=== PATIENT | male | born 1950 | race Caucasian/White ===

== ENCOUNTER 2025-03-17 13:15 | Inpatient (IN) ==
--- NOTE | 2025-03-17 13:34 | Emergency Department Note ---
Impression & Plan Dehydration, Cholecystitis, Diverticulitis, Acute renal failure superimposed on stage 3 chronic kidney disease, Elevated troponin, Nausea vomiting and diarrhea ED Provider Note CHIEF COMPLAINT: Shortness of breath, vomiting, diarrhea HISTORY OF PRESENTING ILLNESS: This 74-year-old male patient presents to the emergency department with his significant other for evaluation of nausea, vomiting, and diarrhea for the past 4 days. He has not been able to keep any fluids down. Also having shortness of breath, but feels like his lungs are OK just that he feels weak that is causing SOB. He feels like his heart is working harder to keep up because he feels so dehydrated. He has some pain in his stomach prior to the vomiting and diarrhea, but no pain otherwise. He states that he is on Plavix. Denies hematochezia, melena, hematuria, hemoptysis, or hematemesis. He denies chest pain or SOB. He denies measured fevers, but feels warm. REVIEW OF SYSTEMS: See HPI for pertinent positives and pertinent negatives. ALLERGIES: NKDA MEDICATIONS: See below PAST MEDICAL HISTORY: See below PHYSICAL EXAM: VITALS: Vitals are noted on the nurse's note and reviewed by myself. GENERAL: Non toxic, in no acute distress, non-diaphoretic. SKIN: Capillary refill <2 sec. EYES: PERRLA. EOMI. Conjunctivae without injection, sclerae without icterus. NOSE: Patent without discharge. MOUTH: Mucous membranes moist. Uvula midline. Airway patent. NECK: Supple without nuchal rigidity. HEART: Regular rate and rhythm without murmurs gallops or rubs. LUNGS: Clear to auscultation bilaterally without wheezes, rales or rhonchi. No retractions or accessory muscle use. ABDOMEN: Positive bowel sounds x 4. Normal tympanic percussion. Soft, mild diffuse tenderness to palpation more so on the left side of the abdomen. No masses or hepatosplenomegaly. No focal right upper quadrant tenderness. Broussard sign negative. No CVA tenderness. No guarding, rigidity, or rebound tenderness. No focal RLQ or LLQ tenderness. MUSCULOSKELETAL: No gross musculoskeletal defects. No significant peripheral edema or pitting edema. Bilateral lower extremities are nontender to palpation. Peripheral pulses 2+. NEURO: Patient was alert and oriented. No focal neurological deficits. DIFFERENTIAL DIAGNOSIS: Differential diagnosis includes CHF, COPD exacerbation, pneumonia, pneumothorax, hemothorax, [place], hepatitis, pancreatitis, cholecystitis, cholelithiasis, appendicitis, kidney stone, pyelonephritis, UTI, gastritis, gastroenteritis, mesenteric adenitis, obstruction, constipation, hernia, abdominal abscess, perforation, diverticulitis, IBD, ischemic colitis, abdominal aortic aneurysm, testicular torsion, prostatitis, or others. ED COURSE AND MEDICAL DECISION MAKING: HISTORY FROM INDEPENDENT HISTORIAN: Additional history obtained from the patient's MEDICATIONS GIVEN: A total of 1500 mL normal saline solution bolus. Tylenol 1000 mg IV. Zofran 4 mg IV. Zosyn 4.5 g IV. MONITOR: Continuous cardiac catheterization technician: Order was placed for continuous cardiac catheterization technician. Patient was placed on the cardiac catheterization technician and continuous pulse ox. Patient was noted to be in normal sinus rhythm at an initial rate of 80 bpm per my interpretation. EKG: EKG was interpreted by myself as normal sinus rhythm at 79 bpm with no acute ST or T wave changes. Repeat EKG was interpreted by myself as normal sinus rhythm at 72 bpm with no acute ST or T wave changes and no significant change from his previous EKG. INTERPRETATION OF LABS: I interpreted the labs with full lab results as below in the lab section of this note. Laboratory results pertinent to the emergent complaint are discussed in the MDM section below. The patient was advised to follow up with their PCP and/or specialist(s) for further outpatient monitoring and management of any abnormal results. INTERPRETATION OF IMAGING: Imaging studies were interpreted by myself and read by radiology as per the imaging section of this note. The patient was advised to follow up with their PCP and/or specialist(s) for further outpatient management of any non-emergent abnormal findings. Chest x-ray negative for acute cardiopulmonary etiology. CT scan of the abdomen and pelvis with IV contrast showed moderate gallbladder distention with possible trace pericholecystic stranding. Acute cholecystitis cannot be ruled out. Right upper quadrant ultrasound is recommended. Subtle acute diverticulitis of the distal descending colon. No free air or abscess. No bowel obstruction. EXTERNAL RECORDS REVIEWED: I reviewed the patient's outpatient [facility] records to review his diagnosis list and medication list CONSULTATIONS: On-call hospitalist CRITICAL CARE: I have personally spent 50 minutes of critical care time in the direct management of this patient. This includes bedside care, interpretation of diagnostic studies, and testing, discussion with consultants, patient, and family members, and other required patient management activities. This 50 minutes is in excess of all separately billable procedures. MDM SUMMARY: I examined the patient. The patient has had nausea, vomiting, and diarrhea for the past 4 days. He feels like he is dehydrated. He feels like he is now short of breath because of the weakness and dehydration, but denies any chest pain. The patient was hypotensive on initial exam with a blood pressure of 77/56. The patient was not febrile. He was not tachycardic. I suspect his hypotension is likely secondary to dehydration because of the vomiting and diarrhea for the past 4 days. An IV lock was placed and labs were drawn. I had a meaningful discussion about this patient with Dr. Ruiz who agrees with my assessment and the treatment plan. The patient states that he has a history of CHF, so he was gently hydrated with 500 mL normal saline solution bolus with improvement of his blood pressure initially, but then he became hypotensive again. The patient was given another 500 mL normal saline solution bolus followed by a third 500 mL normal saline solution bolus for a total of 1.5 L. Additional IV fluids were held in the ER given concerns for fluid overload. White blood cell count normal at 10.23. Hemoglobin low at 12.5. Platelet count normal at 313. Coags were normal. Sodium low at 134, bicarb low at 14, anion gap elevated at 14, BUN elevated at 111, and creatinine elevated at 4.16 which is a significant increase from his baseline. Glucose 128, AST 218, and ALT 124. CMP otherwise without concerning findings. Lipase normal. Magnesium normal at 2.3. BNP normal. Lactate normal, but procalcitonin elevated at 0.79. High- sensitivity troponin elevated at 125.6. EKG without evidence of STEMI. Repeat high-sensitivity troponin improved to 120. Repeat EKG again without evidence for STEMI. The elevated troponin is likely secondary to demand ischemia. Urinalysis with 1+ protein, 3+ blood, but no evidence for UTI. Blood cultures were obtained and are pending. The patient was given Zosyn 4.5 g IV. Chest x-ray negative for acute cardiopulmonary etiology. CT scan of the abdomen and pelvis with IV contrast showed moderate gallbladder distention with possible trace pericholecystic stranding. Acute cholecystitis cannot be ruled out. Right upper quadrant ultrasound is recommended. Subtle acute diverticulitis of the distal descending colon. No free air or abscess. No bowel obstruction. The patient has no focal right upper quadrant abdominal pain or tenderness to palpation and he has a negative Broussard sign. Low suspicion for cholecystitis, but right upper quadrant ultrasound was obtained. Results of the right upper quadrant ultrasound were still pending at the time of admission. The patient does have diverticulitis on CT scan and he is significantly dehydrated from the persisting vomiting and diarrhea with an acute renal injury and elevated troponin likely from demand ischemia. There is also concern for possible sepsis despite the negative lactate and normal white blood cell count. The patient was unable to give a stool sample while in the ER. The patient was given IV Zosyn and 1.5 L of IV fluids, but full sepsis fluid volume was not given due to concerns for fluid overload. I spoke with the on-call hospitalist who agreed to admit the patient for further evaluation and treatment. Please refer to their dictation for further details. The patient's care was transferred in stable, but serious condition. DIAGNOSIS: Dehydration Acute on chronic renal injury Elevated troponin likely secondary to demand ischemia Diverticulitis ? 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, right Social History Smoking Status: Former smoker Tobacco Type: Cigarettes Smoking End Date: March 2023; Second Hand Exposure: No; Tobacco Cessation Education Requested by Patient: No Hx Alcohol Use: No Hx Substance Use: No Preferred Language: Arabic Communication Ability: Effective Repertoire Manager Required: No Beliefs That Will Affect Care: None Current Living Situation: Other Current Living Situation Comment: pt lives w/ friend Christina Other Information That Helps Us Care for You: No Feels Safe at Home: Yes Safety Concerns: Feels Safe At This Time Assistive Devices: Cane and Glasses Allergies Allergies Allergy/AdvReac Type Severity Reaction Status Date / Time No Known Allergies Allergy Verified 03/17/25 16:40 Home Meds Home Medications Medication Instructions Recorded Confirmed acetaminophen 500 mg tablet 1,000 mg PO Q4H PRN Pain 06/16/23 03/17/25 (Tylenol Extra Strength) albuterol sulfate 90 mcg/actuation 2 puff inhalation Q4H PRN Wheezing 06/16/23 03/17/25 aerosol inhaler ascorbic acid (vitamin C) 1,000 mg 1 g PO DAILY 06/16/23 03/17/25 tablet (Vitamin C) aspirin 81 mg tablet,delayed 81 mg PO DAILY 06/16/23 03/17/25 release caffeine 200 mg tablet 200 mg PO DAILY 06/16/23 03/17/25 [id number] 333 mg-133 1 tab PO DAILY 06/16/23 03/17/25 mg-5 mg tablet cholecalciferol (vitamin D3) 50 50 mcg PO DAILY 06/16/23 03/17/25 mcg (2,000 unit) capsule (Vitamin D3) cyanocobalamin (vitamin B-12) 1,000 mcg PO DAILY 06/16/23 03/17/25 1,000 mcg tablet (Vitamin B-12) diclofenac sodium 1 % topical gel 2 g topical QID PRN Pain 06/16/23 03/17/25 duloxetine 30 mg capsule,delayed 30 mg PO BID 06/16/23 03/17/25 release finasteride 5 mg tablet 5 mg PO DAILY 06/16/23 03/17/25 fluticasone propionate 50 2 spray intranasal DAILY 06/16/23 03/17/25 mcg/actuation nasal spray,suspension montelukast 10 mg tablet 10 mg PO DAILY 06/16/23 03/17/25 (Singulair) omeprazole 20 mg tablet,delayed 20 mg PO BIDM 06/16/23 03/17/25 release vitamin E 670 mg (1,000 unit) 670 mg PO DAILY 06/16/23 03/17/25 capsule atorvastatin 80 mg tablet 80 mg PO QAM 03/17/25 03/17/25 bempedoic acid 180 mg tablet 180 mg PO QAM 03/17/25 03/17/25 (Nexletol) clopidogrel 75 mg tablet 75 mg PO QAM 03/17/25 03/17/25 dupilumab 300 mg/2 mL subcutaneous 300 mg subcut .Q2WKS 03/17/25 03/17/25 pen injector (Dupixent) empagliflozin 10 mg tablet 10 mg PO QAM 03/17/25 03/17/25 (Jardiance) fluticasone 250 mcg-salmeterol 50 1 inh inhalation BID 03/17/25 03/17/25 mcg/dose blistr powdr for inhalation (Advair Diskus) isosorbide mononitrate 30 mg 15 mg PO QAM 03/17/25 03/17/25 tablet,extended release 24 hr melatonin 12 mg tablet 12 mg PO HS 03/17/25 03/17/25 metoprolol succinate 25 mg 37.5 mg PO QAM 03/17/25 03/17/25 tablet,extended release 24 hr sacubitril 24 mg-valsartan 26 mg 1 tab PO BID 03/17/25 03/17/25 tablet spironolactone 25 mg tablet 25 mg PO QAM 03/17/25 03/17/25 torsemide 20 mg tablet 20 mg PO QAM 03/17/25 03/17/25 Results & Data (ED) Vital Signs Vital Signs - 24 hr 03/17/25 13:17 03/17/25 13:41 03/17/25 13:41 Temperature 36.2 C L Temperature Source Temporal Artery Scan Pulse Rate 80 Pulse Rate [Apical] 72 Pulse Rate from SpO2 Sensor Pulse Rhythm [Apical] Regular Pulse Strength [Apical] Normal Respiratory Rate 20 12 Respiratory Effort / Characteristics Spontaneous Non-Labored Spontaneous Respiratory Depth Normal Respiratory Pattern Regular Blood Pressure 78/56 L Blood Pressure [Right Arm] 91/58 L Blood Pressure Mean 63 Blood Pressure Mean [Right Arm] 69 Blood Pressure Position [Right Arm] Lying Pulse Oximetry 98 94 94 Oxygen Delivery Method Room Air Room Air Room Air Sepsis Recent Fever Within 48 Hours No Sepsis New/Unexplained Change in Mental Status N/A Sepsis Action Taken by Nursing No Action Required 03/17/25 14:02 03/17/25 15:03 03/17/25 15:35 Temperature Temperature Source Pulse Rate 74 71 Pulse Rate [Apical] 72 Pulse Rate from SpO2 Sensor Pulse Rhythm [Apical] Pulse Strength [Apical] Respiratory Rate 14 17 Respiratory Effort / Characteristics Non-Labored Spontaneous Respiratory Depth Normal Respiratory Pattern Regular Blood Pressure 92/56 L Blood Pressure [Right Arm] 106/55 L Blood Pressure Mean 68 Blood Pressure Mean [Right Arm] 72 Blood Pressure Position [Right Arm] Pulse Oximetry Oxygen Delivery Method Sepsis Recent Fever Within 48 Hours Sepsis New/Unexplained Change in Mental Status Sepsis Action Taken by Nursing 03/17/25 15:49 03/17/25 16:02 03/17/25 16:14 Temperature Temperature Source Pulse Rate 72 78 Pulse Rate [Apical] Pulse Rate from SpO2 Sensor 75 Pulse Rhythm [Apical] Pulse Strength [Apical] Respiratory Rate 13 16 Respiratory Effort / Characteristics Respiratory Depth Respiratory Pattern Blood Pressure 98/68 L 89/62 L 92/56 L Blood Pressure [Right Arm] Blood Pressure Mean 79 71 68 Blood Pressure Mean [Right Arm] Blood Pressure Position [Right Arm] Pulse Oximetry 100 100 Oxygen Delivery Method Sepsis Recent Fever Within 48 Hours Sepsis New/Unexplained Change in Mental Status Sepsis Action Taken by Nursing 03/17/25 16:19 03/17/25 16:30 03/17/25 16:44 Temperature Temperature Source Pulse Rate 76 76 Pulse Rate [Apical] Pulse Rate from SpO2 Sensor Pulse Rhythm [Apical] Pulse Strength [Apical] Respiratory Rate 17 19 Respiratory Effort / Characteristics Respiratory Depth Respiratory Pattern Blood Pressure 81/61 L 98/67 L Blood Pressure [Right Arm] Blood Pressure Mean 65 81 Blood Pressure Mean [Right Arm] Blood Pressure Position [Right Arm] Pulse Oximetry 97 99 Oxygen Delivery Method Sepsis Recent Fever Within 48 Hours Sepsis New/Unexplained Change in Mental Status Sepsis Action Taken by Nursing 03/17/25 16:45 Temperature Temperature Source Pulse Rate Pulse Rate [Apical] Pulse Rate from SpO2 Sensor Pulse Rhythm [Apical] Pulse Strength [Apical] Respiratory Rate Respiratory Effort / Characteristics Respiratory Depth Respiratory Pattern Blood Pressure 93/63 L Blood Pressure [Right Arm] Blood Pressure Mean 74 Blood Pressure Mean [Right Arm] Blood Pressure Position [Right Arm] Pulse Oximetry Oxygen Delivery Method Sepsis Recent Fever Within 48 Hours Sepsis New/Unexplained Change in Mental Status Sepsis Action Taken by Nursing Laboratory Data 03/17/25 22:42 03/17/25 22:42 Lab Results 03/17/25 03/17/25 03/17/25 Range/Units 13:29 13:39 14:49 WBC 10.23 (4.8-10.8) K/ul RBC 4.21 L (4.70-6.10) M/uL Hgb 12.5 L (14.0-18.0) g/dl Hct 39.2 L (42.0-52.0) % MCV 93.1 (80.0-100.0) fL MCH 29.7 (25.0-34.0) pg MCHC 31.9 L (32.0-36.0) g/dL RDW Std Deviation 49.7 H (36.4-46.3) fL RDW Coeff of Grace 14.5 (11.5-14.5) % Plt Count 313 (130-400) K/uL MPV 9.9 (9.4-12.4) fL Immature Gran % (Auto) 2.0 % Neut % (Auto) 79.5 % Lymph % (Auto) 8.9 % [place] % (Auto) 7.4 % Eos % (Auto) 1.6 % Baso % (Auto) 0.6 % Neut # (Auto) 8.14 H (1.40-6.50) K/uL Lymph # (Auto) 0.91 L (1.20-3.40) K/uL [place] # (Auto) 0.76 H (0.11-0.59) K/uL Eos # (Auto) 0.16 (0.00-0.50) K/uL Baso # (Auto) 0.06 (0.00-0.20) K/uL Immature Gran # (Auto) 0.20 (0.01-0.20) K/uL PT 11.3 (9.0-12.0) Seconds INR 1.1 (0.9-1.1) APTT 24 (21-31) Seconds PTT Ratio 0.9 Sodium 134 L (136-145) mmol/L Potassium 4.5 (3.5-5.1) mmol/L Chloride 106 (98-107) mmol/L Carbon Dioxide 14 L (21-32) mmol/L Anion Gap 14 H (3-11) BUN 111 H (6-23) mg/dl Creatinine 4.16 H (0.6-1.4) mg/dl Est Cr Clr Drug Dosing 17.6 ml/min eGFR 14.36 BUN/Creatinine Ratio 26.7 H (10-20) Glucose 128 H (70-99(Fasting)) mg/dl Lactate 1.8 (0.4-2.0) mmol/L Calcium 9.7 (8.6-10.3) mg/dl Magnesium 2.3 (1.7-2.4) mg/dl Total Bilirubin 0.5 (0.2-1.0) mg/dl AST 218 H (13-39) U/L ALT 124 H (7-52) U/L Alkaline Phosphatase 53 (34-104) U/L Troponin I High Sens 125.6 H* (0-20) pg/ml B-Natriuretic Peptide 73 (0-100) pg/ml Total Protein 7.1 (6.0-8.3) gm/dl Albumin 3.5 (3.4-5.0) gm/dl Globulin 3.6 (2.5-4.0) gm/dl Albumin/Globulin Ratio 1.0 (0.9-2) Lipase 28 (11-82) U/L Procalcitonin 0.79 H (0-0.5) ng/ml Blood Type A Negative Antibody Screen NEGATIVE 03/17/25 Range/Units 14:51 WBC (4.8-10.8) K/ul RBC (4.70-6.10) M/uL Hgb (14.0-18.0) g/dl Hct (42.0-52.0) % MCV (80.0-100.0) fL MCH (25.0-34.0) pg MCHC (32.0-36.0) g/dL RDW Std Deviation (36.4-46.3) fL RDW Coeff of Grace (11.5-14.5) % Plt Count (130-400) K/uL MPV (9.4-12.4) fL Immature Gran % (Auto) % Neut % (Auto) % Lymph % (Auto) % [place] % (Auto) % Eos % (Auto) % Baso % (Auto) % Neut # (Auto) (1.40-6.50) K/uL Lymph # (Auto) (1.20-3.40) K/uL [place] # (Auto) (0.11-0.59) K/uL Eos # (Auto) (0.00-0.50) K/uL Baso # (Auto) (0.00-0.20) K/uL Immature Gran # (Auto) (0.01-0.20) K/uL PT (9.0-12.0) Seconds INR (0.9-1.1) APTT (21-31) Seconds PTT Ratio Sodium (136-145) mmol/L Potassium (3.5-5.1) mmol/L Chloride (98-107) mmol/L Carbon Dioxide (21-32) mmol/L Anion Gap (3-11) BUN (6-23) mg/dl Creatinine (0.6-1.4) mg/dl Est Cr Clr Drug Dosing ml/min eGFR BUN/Creatinine Ratio (10-20) Glucose (70-99(Fasting)) mg/dl Lactate (0.4-2.0) mmol/L Calcium (8.6-10.3) mg/dl Magnesium (1.7-2.4) mg/dl Total Bilirubin (0.2-1.0) mg/dl AST (13-39) U/L ALT (7-52) U/L Alkaline Phosphatase (34-104) U/L Troponin I High Sens 120.0 H* (0-20) pg/ml B-Natriuretic Peptide (0-100) pg/ml Total Protein (6.0-8.3) gm/dl Albumin (3.4-5.0) gm/dl Globulin (2.5-4.0) gm/dl Albumin/Globulin Ratio (0.9-2) Lipase (11-82) U/L Procalcitonin (0-0.5) ng/ml Blood Type Antibody Screen Administered Medications Norepinephrine Bitartrate (Levophed/D5w) 4 mg in 250 mls @ 17.025 mls/hr IV .[id number] [facility]; Protocol Stop: 04/16/25 20:59 Last Admin: 03/17/25 21:02 Dose: 0.05 mcg/kg/min, 17 mls/hr Documented By: kassandra Co-signed By: ANTHONY Discontinued Medications Sodium Chloride (Nss) 500 mls @ 999 mls/hr IV .Q31M ONE Stop: 03/17/25 14:15 Last Infusion: 03/17/25 15:35 Dose: Infused Documented By: kassandra Admin: 03/17/25 13:57 Dose: 999 mls/hr Documented By: FLAKITO Acetaminophen (Ofirmev) 1,000 mg in 100 mls @ 400 mls/hr IV NOW STA Stop: 03/17/25 13:59 Last Infusion: 03/17/25 15:34 Dose: Infused Documented By: kassandra Admin: 03/17/25 13:59 Dose: 400 mls/hr Documented By: FLAKITO Sodium Chloride (Nss) 500 mls @ 999 mls/hr IV .Q31M ONE Stop: 03/17/25 15:18 Last Infusion: 03/17/25 16:05 Dose: Infused Documented By: kassandra Admin: 03/17/25 15:34 Dose: 999 mls/hr Documented By: kassandra Piperacillin Sod/Tazobactam Sod (Zosyn) 4.5 gm in 100 mls @ 200 mls/hr IV NOW ONE; Protocol Stop: 03/17/25 16:30 Last Infusion: 03/17/25 17:30 Dose: Infused Documented By: kassandra Admin: 03/17/25 16:39 Dose: 200 mls/hr Documented By: kassandra Sodium Chloride (Nss) 500 mls @ 999 mls/hr IV .Q31M ONE Stop: 03/17/25 16:39 Last Infusion: 03/17/25 17:30 Dose: Infused Documented By: kassandra Admin: 03/17/25 16:41 Dose: 999 mls/hr Documented By: kassandra Sodium Chloride (Nss) 1,000 mls @ 999 mls/hr IV .Q1H1M ONE Stop: 03/17/25 19:57 Last Infusion: 03/17/25 20:44 Dose: Infused Documented By: kassandra Admin: 03/17/25 19:07 Dose: 999 mls/hr Documented By: kassandra Norepinephrine Bitartrate (Norepinephrine/D5w 4 Mg/250 Ml) Confirm Administered Dose 4 mg IV .STK-MED ONE Stop: 03/17/25 21:01 Last Admin: 03/17/25 21:03 Dose: Not Given Documented By: kassandra Ondansetron HCl (Ondansetron Inj 2 Mg/Ml 2 Ml Vial) 4 mg IV NOW STA Stop: 03/17/25 13:46 Last Admin: 03/17/25 13:57 Dose: 4 mg Documented By: FLAKITO Imaging Data Radiologist's Impression: Chest X-Ray 03/17/25 13:42 XR chest 1V portable CLINICAL HISTORY: SOB COMPARISON STUDY: 06/16/2023 FINDINGS: Heart size and pulmonary vasculature are normal. No consolidation or pleural effusion. No pneumothorax. IMPRESSION: No acute findings. ACT 112: Negative or not required by law. Electronically signed by: Sergo Fabian M.D. 03/17/2025 1:59 PM Abdomen/Pelvis CT 03/17/25 14:30 CT OF THE ABDOMEN AND PELVIS WITHOUT CONTRAST CLINICAL HISTORY: Abdominal pain, N/V/D COMPARISON STUDY: No previous studies for comparison. TECHNIQUE: Axial images of the abdomen and pelvis were obtained without IV contrast. Images were reviewed in the axial, sagittal, and coronal planes. Automated exposure control was utilized for the study. A dose lowering technique was utilized adhering to the principles of ALARA. FINDINGS: Visualized lung bases are unremarkable. There is no pneumatosis, free air or portal venous gas. No renal, ureteral or bladder calculi are present. Prostate is mildly enlarged, measuring 4.9 cm in transverse diameter. Images of the pelvis are degraded by streak artifact from left hip arthroplasty. Unenhanced images of the liver, spleen, adrenal glands and pancreas are unremarkable. There is no biliary or pancreatic ductal dilatation. The gallbladder is moderately distended. There may be slight pericholecystic stranding. There is no evidence for a bowel obstruction. Colonic diverticulosis. Note is made of minimal inflammation adjacent to a diverticulum of the distal descending colon. There is no free air or abscess. There is no lymphadenopathy. There are no fluid collections. IMPRESSION: 1. Moderate gallbladder distention with possible trace pericholecystic stranding. Acute cholecystitis cannot be excluded. Right upper quadrant ultrasound is recommended. 2. Subtle acute diverticulitis of the distal descending colon. No free air or abscess. 3. No bowel obstruction. ACT 112: Negative or not required by law. Electronically signed by: Chase Restrepo M.D. 03/17/2025 3:53 PM Gallbladder Ultrasound 03/17/25 16:01 ABDOMINAL ULTRASOUND LIMITED INDICATION: Abdominal pain. TECHNIQUE: Limited upper quadrant ultrasound examination of the abdomen. COMPARISON: CT abdomen and pelvis performed on the same day is not viewable in our system FINDINGS: LIVER: Size: Measures 14.5 cm in craniocaudal length. Echogenicity: Increased Surface nodularity: None Mass: None identified. BILE DUCTS: Intrahepatic ducts: Nondilated Common bile duct diameter: 3 mm GALLBLADDER: Mildly distended without shadowing stones, sludge, wall thickening or pericholecystic fluid. Sonographic Broussard sign: Absent PANCREAS: Visualized portions appear unremarkable RIGHT KIDNEY LENGTH: 8.8 cm No shadowing stones or hydronephrosis identified. ASCITES: None identified. IMPRESSION: Echogenic liver suggesting a parenchymal process including but not limited to steatosis. Mildly distended gallbladder without sonographic evidence of cholecystitis. Electronically signed by Willie Santos 03-17-2025 5:49 PM Discharge Plan Visit Data Chief Complaint: Shortness of Breath/Dyspnea Stated Complaint: SOB, VOMITING ED Provider: Yfn Ruiz ED Midlevel Provider: Nikky Castaneda Discharge Problem: Dehydration, Cholecystitis, Diverticulitis, Acute renal failure superimposed on stage 3 chronic kidney disease, Elevated troponin, Nausea vomiting and diarrhea Patient Disposition: Admitted As Inpatient Condition: Serious
[2025-03-17] MEDS: ONDANSETRON INJ 2 MG/ML 2 ML VIAL IV STA (13:57)
[2025-03-17] MEDS: SODIUM CHLORIDE 0.9% 500 ML IV ONE ×3 (13:57→16:41)
[2025-03-17] MEDS: ACETAMINOPHEN 1,000 MG/100 ML VIAL IV STA (13:59)
--- NOTE | 2025-03-17 14:01 | XRay Report ---
XR chest 1V portable CLINICAL HISTORY: SOB COMPARISON STUDY: 06/16/2023 FINDINGS: Heart size and pulmonary vasculature are normal. No consolidation or pleural effusion. No p neumothorax. IMPRESSION: No acute findings. ACT 112: Negative or not required by law. Electronically signed by: Sergo Fabian M.D. 03/17/2025 1:59 PM
[2025-03-17 14:08] LABS: Hematocrit (blood only) 39.2 % (42.0-52.0); Hemoglobin 12.5 g/dl (14.0-18.0); Immature Granulocytes # (auto) 0.20 K/uL (0.01-0.20); Immature Granulocytes % (auto) 2.0 %; Mean Corpuscular Hemoglobin 29.7 pg (25.0-34.0); Mean Corpuscular Volume 93.1 fL (80.0-100.0); Platelet Count 313 K/uL (130-400); RDW Standard Deviation 49.7 fL (36.4-46.3); Red Blood Count 4.21 M/uL (4.70-6.10); White Blood Count 10.23 K/ul (4.8-10.8)
--- NOTE | 2025-03-17 14:25 | Emergency Department Note ---
ED Visit Note I was consulted by the Advanced Practice Provider Lashon Castaneda PA-C. I performed a substantive portion of the visit including all aspects of medical decision making. .
[2025-03-17 14:26] LABS: Alanine Aminotransferase 124.0 U/L (7-52); Albumin Globulin Ratio 1.0 (0.9-2); Albumin Level 3.5 gm/dl (3.4-5.0); Alkaline Phosphatase 53.0 U/L (34-104); Anion Gap 14.0 (3-11); Bilirubin,Total 0.5 mg/dl (0.2-1.0); Blood Urea Nitrogen 111.0 mg/dl (6-23); Calcium 9.7 mg/dl (8.6-10.3); Carbon Dioxide 14.0 mmol/L (21-32); Chloride 106.0 mmol/L (98-107); Creatinine Clr Calc Pharmacy 17.6 ml/min; Globulin 3.6 gm/dl (2.5-4.0); Glucose 128.0 mg/dl (70-99(Fasting)); Lipase 28.0 U/L (11-82); Potassium 4.5 mmol/L (3.5-5.1); Sodium 134.0 mmol/L (136-145); Total Protein 7.1 gm/dl (6.0-8.3)
--- NOTE | 2025-03-17 14:31 | Electrocardiogram Report ---
Test Reason : Blood Pressure : */* mmHG Vent. Rate : 79 BPM Atrial Rate : 79 BPM P-R Int : 182 ms QRS Dur : 76 ms QT Int : 360 ms P-R-T Axes : 57 65 69 degrees QTcB Int : 412 ms Normal sinus rhythm Low voltage QRS Borderline ECG When compared with ECG of 16-Jun-2023 15:08, Aberrant conduction is no longer Present Vent. rate has decreased by 41 bpm Confirmed by Elijah Santiago ([id number]) on 03/17/2025 2:31:07 PM Referred By: Confirmed By: Elijah Santiago
[2025-03-17 14:35] LABS: INR 1.1 (0.9-1.1); Partial Thromboplastin Time 24 Seconds (21-31); Prothrombin Time 11.3 Seconds (9.0-12.0)
[2025-03-17 15:08] LABS: Magnesium 2.3 mg/dl (1.7-2.4)
--- NOTE | 2025-03-17 15:54 | CT Scan Report ---
CT OF THE ABDOMEN AND PELVIS WITHOUT CONTRAST CLINICAL HISTORY: Abdominal pain, N/V/D COMPARISON STUDY: No previous studies for comparison. TECHNIQUE: Axial images of the abdomen and pelvis were obtained without IV contrast. Images were revi ewed in the axial, sagittal, and coronal planes. Automated exposure control was utilized for the patria dy. A dose lowering technique was utilized adhering to the principles of ALARA. FINDINGS: Visualized lung bases are unremarkable. There is no pneumatosis, free air or portal venous gas. No renal, ureteral or bladder calculi are present. Prostate is mildly enlarged, measuring 4.9 cm in transverse diameter. Images of the pelvis are degraded by streak artifact from left hip arthropla sty. Unenhanced images of the liver, spleen, adrenal glands and pancreas are unremarkable. There is n o biliary or pancreatic ductal dilatation. The gallbladder is moderately distended. There may be slig ht pericholecystic stranding. There is no evidence for a bowel obstruction. Colonic diverticulosis. N ote is made of minimal inflammation adjacent to a diverticulum of the distal descending colon. There is no free air or abscess. There is no lymphadenopathy. There are no fluid collections. IMPRESSION: 1. Moderate gallbladder distention with possible trace pericholecystic stranding. Acute cholecystitis cannot be excluded. Right upper quadrant ultrasound is recommended. 2. Subtle acute diverticulitis of the distal descending colon. No free air or abscess. 3. No bowel obstruction. ACT 112: Negative or not required by law. Electronically signed by: Chase Restrepo M.D. 03/17/2025 3:53 PM
[2025-03-17 16:11] LABS: Appearance Urine Clear (Clear); Bacteria Urine Automated None Seen (None Seen); Epithelial Cell Urine Auto 0-2 /hpf (0-2); Glucose Urine UA Negative (Negative); RBC Urine Automated 0-2 /hpf (0-2); WBC Urine Automated 0-5 /hpf (0-5)
[2025-03-17 16:19] LABS: Cast Urine Automated >20 /lpf (0-2)
[2025-03-17] MEDS: PIPERACILLIN/TAZOBACTAM 4.5 GM/100 ML BAG IV ONE (16:39)
--- NOTE | 2025-03-17 17:35 | History & Physical Report ---
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 Found to be in acute kidney injury and signs and symptoms consistent with possible sepsis from cholecystitis or diverticulitis. History of significant nausea with eating raises concerns for cholecystitis. Patient high risk for further decompensation including worsening renal function, septic shock. Patient requires hospital level care and interventions. Admit to the monitored setting Continue fluid resuscitation Continue broad-spectrum antibiotics for suspected GI infection Hold nephrotoxins and diuretics Monitor renal function electrolytes Continue other outpatient medications as ordered Continue inhalers as ordered Glucose checks 2 times daily, patient is not diabetic, on diabetes medications for cardioprotection and has goal-directed medical therapy for his heart failure. Surgical consultation requested by ED provider. Recommendations pending. Do not anticipate immediate surgical intervention at this time. Significant at bedside updated the plan of care as well. History of Present Illness Chief Complaint: Nausea, vomiting, diarrhea, low blood pressure, poor appetite for the past couple weeks Primary Care Provider: Emeterio Olguin MD Patient is 74-year-old gentleman who presents to the emergency room with above complaints. Patient states that he really has not been able to eat or drink anything for at least 2 weeks. He states that anytime he tried to make something he just got nauseated. Did try and eat some chicken soup he had at night and he states that he threw that up within the next hour. In the emergency room findings 6 significant for acute kidney injury, demand ischemia and imaging concerning for possible diverticulitis or cholecystitis. Patient was referred to our service for further evaluation. Time my evaluation patient was more comfortable. He confirms the above history. He also states that he has been noting that his blood pressure has been running well over the past couple weeks as well. He denies any fever or chills. No chest pain. At his baseline shortness of breath. He has a significant other at the bedside. Per her report is that they lived together for about 7 years they then went their separate ways and she just started to live with him again this week. It really was at her prompting that he sought attention in the emergency room. She has seen a significant change in him over the last few days. No blood in the emesis. No blood in the diarrhea. No swelling in his hands arms legs or feet. Allergies Allergy/AdvReac Type Severity Reaction Status Date / Time No Known Allergies Allergy Verified 03/17/25 16:40 Home Medications Medication Instructions Recorded Confirmed Type acetaminophen 500 mg tablet 1,000 mg PO Q4H PRN Pain 06/16/23 03/17/25 History (Tylenol Extra Strength) albuterol sulfate 90 mcg/actuation 2 puff inhalation Q4H PRN Wheezing 06/16/23 03/17/25 History aerosol inhaler ascorbic acid (vitamin C) 1,000 mg 1 g PO DAILY 06/16/23 03/17/25 History tablet (Vitamin C) aspirin 81 mg tablet,delayed 81 mg PO DAILY 06/16/23 03/17/25 History release caffeine 200 mg tablet 200 mg PO DAILY 06/16/23 03/17/25 History bkzlkdv-vlxlcdfzm-tkzw 333 mg-133 1 tab PO DAILY 06/16/23 03/17/25 History mg-5 mg tablet cholecalciferol (vitamin D3) 50 50 mcg PO DAILY 06/16/23 03/17/25 History mcg (2,000 unit) capsule (Vitamin D3) cyanocobalamin (vitamin B-12) 1,000 mcg PO DAILY 06/16/23 03/17/25 History 1,000 mcg tablet (Vitamin B-12) diclofenac sodium 1 % topical gel 2 g topical QID PRN Pain 06/16/23 03/17/25 History duloxetine 30 mg capsule,delayed 30 mg PO BID 06/16/23 03/17/25 History release finasteride 5 mg tablet 5 mg PO DAILY 06/16/23 03/17/25 History fluticasone propionate 50 2 spray intranasal DAILY 06/16/23 03/17/25 History mcg/actuation nasal spray,suspension montelukast 10 mg tablet 10 mg PO DAILY 06/16/23 03/17/25 History (Singulair) omeprazole 20 mg tablet,delayed 20 mg PO BIDM 06/16/23 03/17/25 History release vitamin E 670 mg (1,000 unit) 670 mg PO DAILY 06/16/23 03/17/25 History capsule atorvastatin 80 mg tablet 80 mg PO QAM 03/17/25 03/17/25 History bempedoic acid 180 mg tablet 180 mg PO QAM 03/17/25 03/17/25 History (Nexletol) clopidogrel 75 mg tablet 75 mg PO QAM 03/17/25 03/17/25 History dupilumab 300 mg/2 mL subcutaneous 300 mg subcut .Q2WKS 03/17/25 03/17/25 History pen injector (Dupixent) empagliflozin 10 mg tablet 10 mg PO QAM 03/17/25 03/17/25 History (Jardiance) fluticasone 250 mcg-salmeterol 50 1 inh inhalation BID 03/17/25 03/17/25 History mcg/dose blistr powdr for inhalation (Advair Diskus) isosorbide mononitrate 30 mg 15 mg PO QAM 03/17/25 03/17/25 History tablet,extended release 24 hr melatonin 12 mg tablet 12 mg PO HS 03/17/25 03/17/25 History metoprolol succinate 25 mg 37.5 mg PO QAM 03/17/25 03/17/25 History tablet,extended release 24 hr sacubitril 24 mg-valsartan 26 mg 1 tab PO BID 03/17/25 03/17/25 History tablet spironolactone 25 mg tablet 25 mg PO QAM 03/17/25 03/17/25 History torsemide 20 mg tablet 20 mg PO QAM 03/17/25 03/17/25 History Past Med/Surg History Problem List (Updated 03/17/25 @ 17:32 by Anthony Jenkins DO) Chronic heart failure with mildly reduced ejection fraction (HFmrEF, 41-49%) Diverticulitis Cholecystitis Acute renal failure superimposed on stage 3 chronic kidney disease Sepsis with organ dysfunction Trochanteric bursitis, left hip 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 Sclera clear Neck: Soft, no adenopathy Lungs: Decreased breath sounds, prolonged expiratory phase CV: S1-S2, regular Abdomen: Soft, nontender, nondistended, no guarding, no rigidity Extremities: No significant edema Musculoskeletal: No significant joint tenderness Neuro: No focal deficits, generally weak Psych: Cooperative, normal mood Results & Data Results & Data Vital Signs (Past 12 Hours) Vital Signs Temp Pulse Pulse Resp BP BP Pulse Ox 03/17/25 17:23 74 16 108/68 100 03/17/25 16:45 93/63 L 03/17/25 16:44 76 19 99 03/17/25 16:30 76 17 98/67 L 97 03/17/25 16:19 81/61 L 03/17/25 16:14 78 16 92/56 L 100 03/17/25 16:02 72 13 89/62 L 100 03/17/25 15:49 98/68 L 03/17/25 15:35 72 17 106/55 L 03/17/25 15:03 71 14 92/56 L 03/17/25 14:02 74 03/17/25 13:41 72 12 91/58 L 94 03/17/25 13:41 94 03/17/25 13:17 36.2 C L 80 20 78/56 L 98 O2 Del Method 03/17/25 17:23 Room Air 03/17/25 16:45 03/17/25 16:44 03/17/25 16:30 03/17/25 16:19 03/17/25 16:14 03/17/25 16:02 03/17/25 15:49 03/17/25 15:35 03/17/25 15:03 03/17/25 14:02 03/17/25 13:41 Room Air 03/17/25 13:41 Room Air 03/17/25 13:17 Room Air Diagnostic Findings Reviewed imaging, laboratory and diagnostic studies. Pertinent findings as below. WBCs 10.2 Hemoglobin 12.5 Platelets at 313 Coags within normal range Sodium 134 Carbon dioxide 14 Anion gap 14 Creatinine 4.16, baseline 1.6 Glucose 128 AST 218 ALT 124 Troponin 125, 120 Procalcitonin 0.79 Lactic acid 1.8 Urinalysis unremarkable for signs of infection Chest x-ray personally reviewed, no consolidative infiltrate or edema Reviewed CT of the abdomen and pelvis report, some moderate gallbladder distention with some Robin cholecystic stranding, cannot exclude cholecystitis. Also question some acute diverticulitis in the descending colon. Gallbladder ultrasound pending Reviewed outside EMR: Reviewed medications, problem list, medical history, cardiology office notes, echocardiogram. Recent echocardiogram showed ejection fraction 45 to 50%, this is significantly improved from previous. Code Status & VTE Plan VTE Prophylaxis Plan VTE Prophylaxis will be ordered: Yes (6) COPD (chronic obstructive pulmonary disease) COPD type: unspecified COPD Qualified Code(s): J44.9 - Chronic obstructive pulmonary disease, unspecified
--- NOTE | 2025-03-17 17:58 | Ultrasound Report ---
ABDOMINAL ULTRASOUND LIMITED INDICATION: Abdominal pain. TECHNIQUE: Limited upper quadrant ultrasound examination of the abdomen. COMPARISON: CT abdomen and pelvis performed on the same day is not viewable in our system FINDINGS: LIVER: Size: Measures 14.5 cm in craniocaudal length. Echogenicity: Increased Surface nodularity: None Mass: None identified. BILE DUCTS: Intrahepatic ducts: Nondilated Common bile duct diameter: 3 mm GALLBLADDER: Mildly distended without shadowing stones, sludge, wall thickening or pericholecystic fluid. Sonographic Broussard sign: Absent PANCREAS: Visualized portions appear unremarkable RIGHT KIDNEY LENGTH: 8.8 cm No shadowing stones or hydronephrosis identified. ASCITES: None identified. IMPRESSION: Echogenic liver suggesting a parenchymal process including but not limited to steatosis. Mildly distended gallbladder without sonographic evidence of cholecystitis. Electronically signed by Willie Santos 03-17-2025 5:49 PM
[2025-03-17] MEDS: SODIUM CHLORIDE 0.9% 1,000 ML IV ONE (19:07)
--- NOTE | 2025-03-17 20:55 | Electrocardiogram Report ---
Test Reason : Blood Pressure : */* mmHG Vent. Rate : 72 BPM Atrial Rate : 72 BPM P-R Int : 192 ms QRS Dur : 80 ms QT Int : 378 ms P-R-T Axes : 54 66 76 degrees QTcB Int : 413 ms Normal sinus rhythm Low voltage QRS Borderline ECG When compared with ECG of 17-Mar-2025 13:38, No significant change was found Confirmed by Elijah Santiago ([id number]) on 03/17/2025 8:55:14 PM Referred By: Todd Wolff Confirmed By: Elijah Santiago
[2025-03-17] MEDS ORDERED: STAT IV Infusion **Titration per Protocol STA (20:59)
[2025-03-17] MEDS: NOREPINEPHRINE/D5W 4 MG/250 ML PLCT IV SCH (21:02)
[2025-03-17] MEDS: NOREPINEPHRINE/D5W 4 MG/250 ML IV ONE (21:03)
--- NOTE | 2025-03-17 21:53 | Critical Care Consultation ---
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 Acute renal failure, prerenal azotemia 2/2 hypovolemia 2. Hypovolemia due to clinical dehydration 3. Diverticulitis, uncomplicated 4. Persistent n/v/d 5. Uremic acidosis 6. Transaminitis 2/2 ischemic hepatitis, mild 7. NSTEMI, type II demand Neuro - [facility] ICU: Negative RASS GOAL 0 HOB 30, aspiration precautions Avoid sedating medications APAP PRN pain/fever Continue duloxetine, melatonin Cardiac - Hold antihypertensives and diuretics, hold statin for now Continue DAPT Continue norepinephrine for MAP goal > 65mmHg Bolus PRN POCUS on arrival to ICU Consider repeat TTE Troponin peaked Admit EKG NSR without acute ischemic changes Respiratory - No acute concerns SpO2 goal 90-92% on basis of COPD Continue inhalers as ordered No PFTs on file with [facility], appears to follow with [facility] - Imaging as above, trend abdominal exam Diet: NPO except meds, consider advancing to clears as tolerated SUP: Home PPI Bowel regimen: Hold, diarrhea RENAL/LYTES - Nephrology consult if renal indices do not improve with hydration Will consider gentle bicarbonate-containing fluids Bolus crystalloid PRN Replete electrolytes as indicated Watts for accurate I/Os Repeat labs now, add CK ENDO - BG 140-180 per SCCM guidelines ISS if needed while inpatient HEME - Trend H/H Restart DAPT tomorrow ID - Reasonable to continue broad-spectrum antibiotics with intra-abdominal coverage for now, de-escalate based on culture data. Likely transition to Rocephin and Flagyl in AM BC x2 pending, UA (-), procalcitonin elevated i/s/o significant kidney disease, MRSA nares pending Does not meet SIRS or sepsis criteria, believe clinical picture is most related to dehydration and renal failure LINES/TUBES/DRAINS - PIV x2 Watts (Day #1) DVT PROPHYLAXIS - Start SQH in AM I have personally spent 47 minutes of critical care time in the direct management of this patient. This is a life/limb threatening event. This includes time spent evaluating patient, direct bedside care, chart review, placing orders, interpretation of diagnostic studies, discussion with consultants, patient, and family members, as well as other required patient management activities. This time is exclusive of all separately billable procedures, and teaching time and separate from and in addition to any other critical care service time. Thank you for allowing us to participate in the care of this patient. Please refer to my attending physician's documentation for any further recommendations. Supervising Physician Co-Signing Physician Notes I, Rohan Rodgers MD, reviewed the physical exam, assessment, plan, and management as documented by the Advanced Care Provider ISAURO Arias, for this patient encounter. I discussed the case with them, confirmed the findings, and I concur with the proposed plan of care. I was available for consultation throughout the encounter and provided guidance as needed. History of Present Illness Reason for Consultation: Hypotension Requesting Physician: Hospitalist Attending Physician: Hospitalist History of Present Illness Mr. Robbie Ortega is a 74YOM with a history of tobacco use disorder, COPD on Dupxient, HFrEF (45-50%), HTN, PUD, CKDIII, BPH who presented to [facility] ED from home on the afternoon of 03/17/2025 due to n/v/d x4 days as well as weakness. Per report, patient with very limited PO intake due to persistent emesis. Some abdominal pain present. Hypotensive but initially responsive to IVF. Work-up revealed pericholecystic edema/stranding and findings concerning for diverticulitis about the distal descending colon. RUQ US with negative Broussard sign and no stones, sludge, or wall thickening. Labs revealed severe HEATHER with BUN/Cr 111/4.16 (last value 35/1.59 respectively in 2023). Mild transaminitis without hyperbilirubinemia. Elevated procalcitonin. WBC WNL but with neutrophil predominance and lymphopenia. HGB down significantly from prior. Due to hypotension refractory to 30cc/kg crystalloid patient was started on norepinephrine and admitted to ICU for continuation of care. Patient seen in ICU 108. He is AAOx3. No acute distress and no current complaints. He is pleasant and conversant. Endorses 3-4 days of inability to tolerate PO intake. He states that when he tried to drink or eat he would vomit and have diarrhea at the same time a short while later. He was able to keep his medications down, but nothing else substantive. No blood in his emesis or stools. He currently denies abdominal pain or nausea. He denies sick contacts or new foods. He is now requiring 0.03mcg/kg/min of norepinephrine with MAP 78. Allergies Allergy/AdvReac Type Severity Reaction Status Date / Time No Known Allergies Allergy Verified 03/17/25 16:40 Home Medications Medication Instructions Recorded Confirmed Type acetaminophen 500 mg tablet 1,000 mg PO Q4H PRN Pain 06/16/23 03/17/25 History (Tylenol Extra Strength) albuterol sulfate 90 mcg/actuation 2 puff inhalation Q4H PRN Wheezing 06/16/23 03/17/25 History aerosol inhaler ascorbic acid (vitamin C) 1,000 mg 1 g PO DAILY 06/16/23 03/17/25 History tablet (Vitamin C) aspirin 81 mg tablet,delayed 81 mg PO DAILY 06/16/23 03/17/25 History release caffeine 200 mg tablet 200 mg PO DAILY 06/16/23 03/17/25 History kaszifo-allxdknxa-sntw 333 mg-133 1 tab PO DAILY 06/16/23 03/17/25 History mg-5 mg tablet cholecalciferol (vitamin D3) 50 50 mcg PO DAILY 06/16/23 03/17/25 History mcg (2,000 unit) capsule (Vitamin D3) cyanocobalamin (vitamin B-12) 1,000 mcg PO DAILY 06/16/23 03/17/25 History 1,000 mcg tablet (Vitamin B-12) diclofenac sodium 1 % topical gel 2 g topical QID PRN Pain 06/16/23 03/17/25 History duloxetine 30 mg capsule,delayed 30 mg PO BID 06/16/23 03/17/25 History release finasteride 5 mg tablet 5 mg PO DAILY 06/16/23 03/17/25 History fluticasone propionate 50 2 spray intranasal DAILY 06/16/23 03/17/25 History mcg/actuation nasal spray,suspension montelukast 10 mg tablet 10 mg PO DAILY 06/16/23 03/17/25 History (Singulair) omeprazole 20 mg tablet,delayed 20 mg PO BIDM 06/16/23 03/17/25 History release vitamin E 670 mg (1,000 unit) 670 mg PO DAILY 06/16/23 03/17/25 History capsule atorvastatin 80 mg tablet 80 mg PO QAM 03/17/25 03/17/25 History bempedoic acid 180 mg tablet 180 mg PO QAM 03/17/25 03/17/25 History (Nexletol) clopidogrel 75 mg tablet 75 mg PO QAM 03/17/25 03/17/25 History dupilumab 300 mg/2 mL subcutaneous 300 mg subcut .Q2WKS 03/17/25 03/17/25 History pen injector (Dupixent) empagliflozin 10 mg tablet 10 mg PO QAM 03/17/25 03/17/25 History (Jardiance) fluticasone 250 mcg-salmeterol 50 1 inh inhalation BID 03/17/25 03/17/25 History mcg/dose blistr powdr for inhalation (Advair Diskus) isosorbide mononitrate 30 mg 15 mg PO QAM 03/17/25 03/17/25 History tablet,extended release 24 hr melatonin 12 mg tablet 12 mg PO HS 03/17/25 03/17/25 History metoprolol succinate 25 mg 37.5 mg PO QAM 03/17/25 03/17/25 History tablet,extended release 24 hr sacubitril 24 mg-valsartan 26 mg 1 tab PO BID 03/17/25 03/17/25 History tablet spironolactone 25 mg tablet 25 mg PO QAM 03/17/25 03/17/25 History torsemide 20 mg tablet 20 mg PO QAM 03/17/25 03/17/25 History Patient History Social History Smoking Status: Former smoker Tobacco Type: Cigarettes Smoking End Date: March 2023; Second Hand Exposure: No; Tobacco Cessation Education Requested by Patient: No Hx Alcohol Use: No Hx Substance Use: No Preferred Language: Tunisian Communication Ability: Effective Phot[employer] Model Required: No Beliefs That Will Affect Care: None Current Living Situation: Other Current Living Situation Comment: pt lives w/ friend Christina Other Information That Helps Us Care for You: No Feels Safe at Home: Yes Safety Concerns: Feels Safe At This Time Assistive Devices: Cane and Walker Review of Systems Review of Systems: All systems reviewed & are unremarkable except as noted in Subjective Physical Exam Constitutional: WD/WN, vitals as above Eyes: PERRL, conjunctivae normal, anicteric sclerae ENMT: Edentulous. Dry MM Neck: trachea midline, no thyromegaly Respiratory: normal respiratory effort, lungs clear to auscultation Cardiovascular: RRR, no murmur, no edema Gastrointestinal (Abdomen): normal bowel sounds, soft, nontender, no hepatosplenomegaly Musculoskeletal: no cyanosis or clubbing, extremities motor strength 5/5 (All compartments soft) Skin: no rashes, warm and dry No peripheral edema Neurologic: No focal deficits Genitourinary: Watts in place draining light yellow urine Results & Data Results & Data Vital Signs (Past 12 Hours) Vital Signs Temp Pulse Pulse Resp BP BP Pulse Ox 03/17/25 21:42 74 12 100 03/17/25 21:40 102/80 03/17/25 21:30 99/72 L 03/17/25 21:25 99/68 L 03/17/25 21:24 72 14 99 03/17/25 21:20 96/75 L 03/17/25 21:20 76 21 99 03/17/25 21:15 103/85 03/17/25 21:05 90/65 L 03/17/25 21:03 78 21 100 03/17/25 21:01 89/63 L 03/17/25 20:54 75 17 99 03/17/25 20:53 89/71 L 03/17/25 20:51 76 17 99 03/17/25 20:51 77/56 L 03/17/25 20:50 77/56 L 03/17/25 20:48 78 19 98 03/17/25 20:45 75 19 99 03/17/25 20:43 36.4 C L 03/17/25 20:39 100 03/17/25 20:39 111/80 03/17/25 20:39 111/80 03/17/25 20:31 93/48 L 03/17/25 20:31 93/48 L 03/17/25 20:20 101/73 03/17/25 20:20 101/73 03/17/25 20:10 95/71 L 03/17/25 20:06 89/66 L 03/17/25 20:02 77 15 89/66 L 99 03/17/25 19:30 76 17 92/65 L 99 03/17/25 19:04 80/48 L 03/17/25 19:03 80 16 98 03/17/25 18:57 76/50 L 03/17/25 18:18 78 17 102/76 95 03/17/25 18:05 71 03/17/25 18:00 73 13 106/77 99 03/17/25 17:24 73 15 108/68 100 03/17/25 17:23 74 16 108/68 100 03/17/25 16:45 93/63 L 03/17/25 16:44 76 19 99 03/17/25 16:30 76 17 98/67 L 97 03/17/25 16:19 81/61 L 03/17/25 16:14 78 16 92/56 L 100 03/17/25 16:02 72 13 89/62 L 100 03/17/25 15:49 98/68 L 03/17/25 15:35 72 17 106/55 L 03/17/25 15:03 71 14 92/56 L 03/17/25 14:02 74 03/17/25 13:41 72 12 91/58 L 94 03/17/25 13:41 94 03/17/25 13:17 36.2 C L 80 20 78/56 L 98 O2 Del Method 03/17/25 21:42 03/17/25 21:40 03/17/25 21:30 03/17/25 21:25 03/17/25 21:24 03/17/25 21:20 03/17/25 21:20 03/17/25 21:15 03/17/25 21:05 03/17/25 21:03 03/17/25 21:01 03/17/25 20:54 03/17/25 20:53 03/17/25 20:51 03/17/25 20:51 03/17/25 20:50 03/17/25 20:48 03/17/25 20:45 03/17/25 20:43 03/17/25 20:39 03/17/25 20:39 03/17/25 20:39 03/17/25 20:31 03/17/25 20:31 03/17/25 20:20 03/17/25 20:20 03/17/25 20:10 03/17/25 20:06 03/17/25 20:02 03/17/25 19:30 03/17/25 19:04 03/17/25 19:03 03/17/25 18:57 03/17/25 18:18 03/17/25 18:05 03/17/25 18:00 Room Air 03/17/25 17:24 03/17/25 17:23 Room Air 03/17/25 16:45 03/17/25 16:44 03/17/25 16:30 03/17/25 16:19 03/17/25 16:14 03/17/25 16:02 03/17/25 15:49 03/17/25 15:35 03/17/25 15:03 03/17/25 14:02 03/17/25 13:41 Room Air 03/17/25 13:41 Room Air 03/17/25 13:17 Room Air Laboratory Results Reviewed Diagnostic Findings Reviewed Medications Administered See MAR Coding Level of Care Code 17167 IN/OBS CONSULT LVL 3,45M Diagnoses Acute renal failure superimposed on stage 3 chronic kidney disease N17.9; N18.30 Chronic heart failure with mildly reduced ejection fraction (HFmrEF, 41-49%) I50.22 Hypovolemia due to dehydration E86.1; E86.0 Shock R57.9 Uremic acidosis N25.89 Time Spent (min) 47
[2025-03-17 23:10] LABS: Hematocrit (blood only) 39.1 % (42.0-52.0); Hemoglobin 12.7 g/dl (14.0-18.0); Mean Corpuscular Hemoglobin 30.2 pg (25.0-34.0); Mean Corpuscular Volume 92.9 fL (80.0-100.0); Platelet Count 310 K/uL (130-400); RDW Standard Deviation 49.2 fL (36.4-46.3); Red Blood Count 4.21 M/uL (4.70-6.10); White Blood Count 11.25 K/ul (4.8-10.8)
[2025-03-17 23:28] LABS: Anion Gap 13.0 (3-11); Blood Urea Nitrogen 99.0 mg/dl (6-23); Calcium 9.1 mg/dl (8.6-10.3); Carbon Dioxide 12.0 mmol/L (21-32); Chloride 111.0 mmol/L (98-107); Creatinine Clr Calc Pharmacy 22.1 ml/min; Glucose 100.0 mg/dl (70-99(Fasting)); Potassium 4.4 mmol/L (3.5-5.1); Sodium 136.0 mmol/L (136-145)
[2025-03-17 23:48] LABS: Magnesium 2.2 mg/dl (1.7-2.4)
[2025-03-18] MEDS ORDERED: ONDANSETRON INJ 2 MG/ML 2 ML VIAL IV PRN (00:07)
[2025-03-18] MEDS ORDERED: ALBUTEROL HFA 8 GM INHALER INH PRN (00:07)
[2025-03-18] MEDS: SODIUM CHLORIDE 0.9% 1,000 ML IV SCH (00:25)
[2025-03-18] MEDS: MELATONIN 3 MG TAB PO SCH ×2 (01:01→01:06)
[2025-03-18] MEDS: PIPERACILLIN/TAZOBACTAM 4.5 GM/100 ML BAG IV SCH (01:06)
[2025-03-18] MEDS: LACTATED RINGER'S 500 ML IV ONE ×3 (01:07→10:47)
[2025-03-18] MEDS: HEPARIN SOD 5,000 UNIT/0.5 ML VIAL SQ SCH (01:07)
[2025-03-18] MEDS: LACTATED RINGER'S 1,000 ML IV SCH (03:49)
[2025-03-18 05:22] LABS: Hematocrit (blood only) 34.7 % (42.0-52.0); Hemoglobin 11.4 g/dl (14.0-18.0); Mean Corpuscular Hemoglobin 30.1 pg (25.0-34.0); Mean Corpuscular Volume 91.6 fL (80.0-100.0); Platelet Count 285 K/uL (130-400); RDW Standard Deviation 47.6 fL (36.4-46.3); Red Blood Count 3.79 M/uL (4.70-6.10); White Blood Count 9.06 K/ul (4.8-10.8)
[2025-03-18 06:40] LABS: Magnesium 2.1 mg/dl (1.7-2.4)
[2025-03-18] MEDS ORDERED: STAT IV/IM STA (06:48)
[2025-03-18] MEDS: SODIUM BICARBONATE 8.4% 150 MEQ in DEXTROSE 5% 1,000 ML IV SCH (07:35)
[2025-03-18 07:39] LABS: Alanine Aminotransferase 102.0 U/L (7-52); Albumin Level 3.2 gm/dl (3.4-5.0); Alkaline Phosphatase 41.0 U/L (34-104); Anion Gap 13.0 (3-11); Bilirubin,Total 0.5 mg/dl (0.2-1.0); Blood Urea Nitrogen 86.0 mg/dl (6-23); Calcium 9.0 mg/dl (8.6-10.3); Carbon Dioxide 12.0 mmol/L (21-32); Chloride 113.0 mmol/L (98-107); Creatinine Clr Calc Pharmacy 27.0 ml/min; Glucose 114.0 mg/dl (70-99(Fasting)); Potassium 4.1 mmol/L (3.5-5.1); Sodium 138.0 mmol/L (136-145); Total Protein 6.1 gm/dl (6.0-8.3)
[2025-03-18] MEDS: FINASTERIDE 5 MG TAB PO SCH (08:05)
[2025-03-18] MEDS: MONTELUKAST SODIUM 10 MG TABLET PO SCH (08:05)
[2025-03-18] MEDS: FLUTICASONE/VILANTEROL 200/25MCG 14 PUFFS/INHALER INH SCH (08:05)
[2025-03-18] MEDS: ASPIRIN 81 MG ECTAB PO SCH (08:05)
[2025-03-18] MEDS: CLOPIDOGREL BISULFATE 75 MG TAB PO SCH (08:05)
--- NOTE | 2025-03-18 08:33 | Critical Care Progress Note ---
Date of Service March 18, 2025 Assessment & Plan (1) Septic shock: Plan: * Persistent hypotension requiring vasopressors despite adequate volume- repletion * Suspected infectious source diverticulitis * HEATHER on CKD-3 * Continue antibiotics * Taper Vasopressors to MAP 65-70 mmHg (2) Acute renal failure superimposed on stage 3 chronic kidney disease: Plan: * Multifactorial * Intravascular hypovolemia secondary to GI losses * Impaired renal perfusion secondary to septic shock, hypotension, and intravascular-volume depletion * Rhabdomyolysis * Creatinine improving with overall improved BP and fluid-repletion * Avoid nephrotoxic medications. 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 This is a life/limb threatening event. This includes time spent evaluating the patient, direct bedside care, chart review, placing orders, interpreting diagnostic studies, communicating with consultants, attending providers, patient, and family members, as well as required patient management activities. This time is exclusive of all separately-billable procedures and teaching time, and separate from and in addition to any other critical care service time. Housekeeping items: Feeding/Fluids: Tolerating clear liquids. Receiving fluids with Bicarb. Analgesia: None needed at this time. Sedation: None needed at this time. Thromboprophylaxis: SC Heparin. Head-up Position: Not applicable Ulcer Prophylaxis: IV Pepcid Glycemic Control: None needed at this time. Spontaneous Breathing Trial: Not applicable Bowel Care: None needed at this time. Indwelling Catheters/ Removal: Watts catheter for accurate I/O. Drug de-escalation: Continue Zosyn. Disposition: Continue in ICU at least until off of vasopressors. Admission and Anticipated Discharge Date Admission Date: March 17, 2025 Subjective The patient is a very pleasant 74-year-old male who presented to the ED accompanied by his significant other for evaluation of persistent nausea, vomiting, and diarrhea ongoing for the past four days. He reported an inability to tolerate any oral intake, including fluids, and described associated generalized weakness and shortness of breath. He also noted mild, diffuse abdominal pain preceding the onset of vomiting and diarrhea. On arrival, the patient was found to be hypotensive with a blood pressure of 77/56 mmHg, but was afebrile and not tachycardic. Initial laboratory evaluation demonstrated significant acute kidney injury with BUN/Cr of 111/4.16 (markedly increased from baseline), hyponatremia, metabolic acidosis, and mild transaminitis. His hemoglobin was decreased, but white blood cell count was within normal limits. Procalcitonin was elevated, and high- sensitivity troponin was mildly elevated. Imaging included a chest x-ray negative for acute cardiopulmonary pathology, and a CT scan of the abdomen and pelvis which showed moderate gallbladder distention with possible pericholecystic stranding, as well as subtle acute diverticulitis of the distal descending colon. There was no evidence of bowel obstruction, free air, or abscess. Right upper quadrant ultrasound was obtained, and it was interpreted as showing mildly distended gallbladder without sonographic evidence for cholecystitis. The patient received a total of 1.5 liters of intravenous normal saline in divided boluses, with some initial improvement in blood pressure, but he remained hypotensive, necessitating initiation of norepinephrine for hemodynamic support. He was started on broad-spectrum antibiotics (Zosyn) for suspected intra-abdominal infection. In summary, the patient was admitted to the ICU in stable but serious condition for management of sepsis with organ dysfunction, acute kidney injury superimposed on stage 3 CKD, shock, uremic acidosis, and acute diverticulitis. He required vasopressor support and close monitoring. His past medical history included CHF with mildly reduced ejection fraction (HFmrEF, 41-49%), COPD, CKD stage 3, hypertension, PUD, BPH, and a history of tobacco use disorder. Note from 03/18/2025: Review of Systems Review of Systems: All systems reviewed & are unremarkable except as noted in HPI & below Physical Exam Physical Exam: General: In no acute distress, breathing room-air. Obese. Skin: Warm and dry to touch. Few facial lesions suggestive of seborrheic keratosis. Eyes: Anicteric.Noconjunctival hyperemia or exudates.No periorbital edema. ENT: No oral thrush. No oropharyngeal erythema or exudates. Modified-Mallampati 3 (Hard and soft palate seen). Neck: No palpable masses or adenopathy. Respiratory: Diffusely decreased breath sounds, no wheezing or crackles. No use of accessory muscles and no prolonged exhalation. Cardiac: Distant sounds, regular rhythm, no murmurs, no gallops, no rubs; could not appreciate JV pulse elevation. GI: Soft, active bowel-sounds. No organomegaly or RUQ tenderness. Extremities No clubbing,no cyanosis,no edema. Neuro: Patient initially was sleeping, but awakened easily. No gross motor deficits. Seems appropriate. No facial-droop. Speech is clear. Results & Data Results & Data Vital Signs (Past 12 Hours) Vital Signs Temp Pulse Pulse Resp BP BP Pulse Ox 03/18/25 08:00 36.7 C 78 19 103/71 97 03/18/25 07:51 36.6 C 03/18/25 07:15 91/62 L 03/18/25 07:15 36.6 C 83 15 96 03/18/25 07:00 36.6 C 83 17 94 03/18/25 05:48 36.6 C 82 16 96 03/18/25 05:46 79/62 L 03/18/25 05:30 83/60 L 03/18/25 05:30 36.6 C 81 17 97 03/18/25 05:23 83/55 L 03/18/25 05:09 36.6 C 81 15 97 03/18/25 05:06 36.6 C 82 16 96 03/18/25 04:48 36.5 C 81 16 96 03/18/25 04:46 90/63 L 03/18/25 04:45 81/62 L 03/18/25 04:37 93/66 L 03/18/25 04:36 36.5 C 79 16 96 03/18/25 04:30 78/61 L 03/18/25 04:27 36.5 C 81 15 95 03/18/25 04:15 36.5 C 80 14 96 03/18/25 04:15 87/61 L 03/18/25 04:03 91/63 L 03/18/25 04:00 36.6 C 83 16 94 03/18/25 03:45 84/56 L 03/18/25 03:45 36.6 C 82 15 95 03/18/25 03:30 36.7 C 82 16 94 03/18/25 03:30 77/56 L 03/18/25 03:21 36.7 C 82 18 94 03/18/25 03:15 82/56 L 03/18/25 03:12 36.7 C 81 16 96 03/18/25 03:06 36.7 C 80 16 95 03/18/25 03:01 80/56 L 03/18/25 02:30 82/54 L 03/18/25 02:27 36.7 C 84 16 97 03/18/25 02:21 36.7 C 81 17 97 03/18/25 02:15 80/50 L 03/18/25 02:12 36.7 C 80 18 98 03/18/25 02:06 36.7 C 77 17 95 03/18/25 02:01 72/54 L 03/18/25 01:54 36.7 C 73 13 95 03/18/25 01:46 96/64 L 03/18/25 01:30 93/57 L 03/18/25 01:27 36.8 C 73 17 96 03/18/25 01:24 36.8 C 74 12 96 03/18/25 01:15 98/64 L 03/18/25 01:06 36.8 C 74 19 99 03/18/25 01:03 36.8 C 79 17 96 03/18/25 01:00 91/59 L 03/18/25 00:54 36.8 C 76 17 98 03/18/25 00:45 91/63 L 03/18/25 00:24 36.9 C 77 18 97 03/18/25 00:18 36.9 C 80 21 96 03/18/25 00:15 95/62 L 03/18/25 00:12 36.9 C 79 22 96 03/18/25 00:03 36.9 C 75 22 95 03/18/25 00:00 82/67 L 03/18/25 00:00 75 03/18/25 00:00 03/17/25 23:57 36.9 C 84 14 93 03/17/25 23:45 77 17 03/17/25 23:44 102/67 03/17/25 23:24 75 22 100/71 96 03/17/25 23:20 100/71 03/17/25 23:15 108/82 03/17/25 23:10 115/79 03/17/25 23:06 74 17 112/81 97 03/17/25 23:00 98/73 L 03/17/25 22:51 74 15 98 03/17/25 22:50 98/68 L 03/17/25 22:45 77 03/17/25 22:40 138/69 03/17/25 22:33 83 21 117/83 03/17/25 22:27 82 17 98 03/17/25 22:25 110/74 03/17/25 22:20 104/66 03/17/25 22:16 110/75 03/17/25 22:10 105/76 03/17/25 22:06 94/70 L 03/17/25 22:00 76 15 108/74 100 03/17/25 21:57 76 17 99/70 L 99 03/17/25 21:51 73 14 101/74 100 03/17/25 21:50 101/74 03/17/25 21:42 74 12 100 03/17/25 21:40 102/80 03/17/25 21:30 99/72 L 03/17/25 21:25 99/68 L 03/17/25 21:24 72 14 99 03/17/25 21:20 96/75 L 03/17/25 21:20 76 21 99 03/17/25 21:15 103/85 03/17/25 21:05 90/65 L 03/17/25 21:03 78 21 100 03/17/25 21:01 89/63 L 03/17/25 20:54 75 17 99 03/17/25 20:53 89/71 L 03/17/25 20:51 76 17 99 03/17/25 20:51 77/56 L 03/17/25 20:50 77/56 L 03/17/25 20:48 78 19 98 03/17/25 20:45 75 19 99 03/17/25 20:43 36.4 C L 03/17/25 20:39 100 03/17/25 20:39 111/80 03/17/25 20:39 111/80 O2 Del Method 03/18/25 08:00 03/18/25 07:51 03/18/25 07:15 03/18/25 07:15 03/18/25 07:00 Room Air 03/18/25 05:48 03/18/25 05:46 03/18/25 05:30 03/18/25 05:30 03/18/25 05:23 03/18/25 05:09 03/18/25 05:06 03/18/25 04:48 03/18/25 04:46 03/18/25 04:45 03/18/25 04:37 03/18/25 04:36 03/18/25 04:30 03/18/25 04:27 03/18/25 04:15 03/18/25 04:15 03/18/25 04:03 03/18/25 04:00 03/18/25 03:45 03/18/25 03:45 03/18/25 03:30 03/18/25 03:30 03/18/25 03:21 03/18/25 03:15 03/18/25 03:12 03/18/25 03:06 03/18/25 03:01 03/18/25 02:30 03/18/25 02:27 03/18/25 02:21 03/18/25 02:15 03/18/25 02:12 03/18/25 02:06 03/18/25 02:01 03/18/25 01:54 03/18/25 01:46 03/18/25 01:30 03/18/25 01:27 03/18/25 01:24 03/18/25 01:15 03/18/25 01:06 03/18/25 01:03 03/18/25 01:00 03/18/25 00:54 03/18/25 00:45 03/18/25 00:24 03/18/25 00:18 03/18/25 00:15 03/18/25 00:12 03/18/25 00:03 03/18/25 00:00 03/18/25 00:00 03/18/25 00:00 Room Air 03/17/25 23:57 03/17/25 23:45 03/17/25 23:44 03/17/25 23:24 03/17/25 23:20 03/17/25 23:15 03/17/25 23:10 03/17/25 23:06 03/17/25 23:00 03/17/25 22:51 03/17/25 22:50 03/17/25 22:45 03/17/25 22:40 03/17/25 22:33 03/17/25 22:27 03/17/25 22:25 03/17/25 22:20 03/17/25 22:16 03/17/25 22:10 03/17/25 22:06 03/17/25 22:00 03/17/25 21:57 03/17/25 21:51 03/17/25 21:50 03/17/25 21:42 03/17/25 21:40 03/17/25 21:30 03/17/25 21:25 03/17/25 21:24 03/17/25 21:20 03/17/25 21:20 03/17/25 21:15 03/17/25 21:05 03/17/25 21:03 03/17/25 21:01 03/17/25 20:54 03/17/25 20:53 03/17/25 20:51 03/17/25 20:51 03/17/25 20:50 03/17/25 20:48 03/17/25 20:45 03/17/25 20:43 03/17/25 20:39 03/17/25 20:39 03/17/25 20:39 Laboratory Results 03/17/25 14:49 Aerobic Blood Culture - Pending Blood Anaerobic Blood Culture - Pending 03/17/25 14:49 Aerobic Blood Culture - Pending Blood Anaerobic Blood Culture - Pending 03/18/25 03/18/25 03/17/25 Unknown 04:33 Unknown WBC 9.06 RBC 3.79 L Hgb 11.4 L Hct 34.7 L MCV 91.6 MCH 30.1 MCHC 32.9 RDW Std Deviation 47.6 H RDW Coeff of Grace 14.4 Plt Count 285 MPV 9.7 Immature Gran % (Auto) Neut % (Auto) Lymph % (Auto) [place] % (Auto) Eos % (Auto) Baso % (Auto) Neut # (Auto) Lymph # (Auto) [place] # (Auto) Eos # (Auto) Baso # (Auto) Immature Gran # (Auto) PT INR APTT PTT Ratio Sodium 138 Potassium 4.1 Chloride 113 H Carbon Dioxide 12 L Anion Gap 13 H BUN 86 H Creatinine 2.76 H D Est Cr Clr Drug Dosing 27.0 eGFR 23.50 BUN/Creatinine Ratio 31.2 H Glucose 114 H Lactate Calcium 9.0 Phosphorus 4.9 Magnesium 2.1 Total Bilirubin 0.5 Direct Bilirubin 0.2 AST 193 H ALT 102 H Alkaline Phosphatase 41 Total Creatine Kinase 5477 H Troponin I High Sens B-Natriuretic Peptide Total Protein 6.1 Albumin 3.2 L Globulin Albumin/Globulin Ratio Lipase Procalcitonin Urine Color Yellow Urine Appearance Clear Urine pH 5.0 Ur Specific [place] 1.011 Urine Protein 1+ H Urine Glucose (UA) Negative Urine Ketones Negative Urine Blood 3+ H Urine Nitrite Negative Urine Bilirubin Negative Urine Urobilinogen Negative Ur Leukocyte Esterase Negative Urine WBC (Auto) 0-5 Urine RBC (Auto) 0-2 U Hyaline Cast (Auto) >20 H U Epithel Cells (Auto) 0-2 Urine Bacteria (Auto) None Seen Hyaline Casts Present A Urine Comment Nasal Screen MRSA (PCR) Negative Blood Type Antibody Screen 03/17/25 03/17/25 03/17/25 22:42 14:51 14:49 WBC 11.25 H RBC 4.21 L Hgb 12.7 L Hct 39.1 L MCV 92.9 MCH 30.2 MCHC 32.5 RDW Std Deviation 49.2 H RDW Coeff of Grace 14.5 Plt Count 310 MPV 9.8 Immature Gran % (Auto) Neut % (Auto) Lymph % (Auto) [place] % (Auto) Eos % (Auto) Baso % (Auto) Neut # (Auto) Lymph # (Auto) [place] # (Auto) Eos # (Auto) Baso # (Auto) Immature Gran # (Auto) PT INR APTT PTT Ratio Sodium 136 Potassium 4.4 Chloride 111 H Carbon Dioxide 12 L Anion Gap 13 H BUN 99 H Creatinine 3.32 H D Est Cr Clr Drug Dosing 22.1 eGFR 18.83 BUN/Creatinine Ratio 29.8 H Glucose 100 H Lactate 1.9 Calcium 9.1 Phosphorus 5.5 H Magnesium 2.2 Total Bilirubin Direct Bilirubin AST ALT Alkaline Phosphatase Total Creatine Kinase 6907 H Troponin I High Sens 108.4 H* 120.0 H* B-Natriuretic Peptide Total Protein Albumin Globulin Albumin/Globulin Ratio Lipase Procalcitonin Urine Color Urine Appearance Urine pH Ur Specific [place] Urine Protein Urine Glucose (UA) Urine Ketones Urine Blood Urine Nitrite Urine Bilirubin Urine Urobilinogen Ur Leukocyte Esterase Urine WBC (Auto) Urine RBC (Auto) U Hyaline Cast (Auto) U Epithel Cells (Auto) Urine Bacteria (Auto) Hyaline Casts Urine Comment Nasal Screen MRSA (PCR) Blood Type A Negative Antibody Screen NEGATIVE 03/17/25 03/17/25 13:39 13:29 WBC 10.23 RBC 4.21 L Hgb 12.5 L Hct 39.2 L MCV 93.1 MCH 29.7 MCHC 31.9 L RDW Std Deviation 49.7 H RDW Coeff of Grace 14.5 Plt Count 313 MPV 9.9 Immature Gran % (Auto) 2.0 Neut % (Auto) 79.5 Lymph % (Auto) 8.9 [place] % (Auto) 7.4 Eos % (Auto) 1.6 Baso % (Auto) 0.6 Neut # (Auto) 8.14 H Lymph # (Auto) 0.91 L [place] # (Auto) 0.76 H Eos # (Auto) 0.16 Baso # (Auto) 0.06 Immature Gran # (Auto) 0.20 PT 11.3 INR 1.1 APTT 24 PTT Ratio 0.9 Sodium 134 L Potassium 4.5 Chloride 106 Carbon Dioxide 14 L Anion Gap 14 H BUN 111 H Creatinine 4.16 H Est Cr Clr Drug Dosing 17.6 eGFR 14.36 BUN/Creatinine Ratio 26.7 H Glucose 128 H Lactate 1.8 Calcium 9.7 Phosphorus Magnesium 2.3 Total Bilirubin 0.5 Direct Bilirubin AST 218 H ALT 124 H Alkaline Phosphatase 53 Total Creatine Kinase Troponin I High Sens 125.6 H* B-Natriuretic Peptide 73 Total Protein 7.1 Albumin 3.5 Globulin 3.6 Albumin/Globulin Ratio 1.0 Lipase 28 Procalcitonin 0.79 H Urine Color Urine Appearance Urine pH Ur Specific [place] Urine Protein Urine Glucose (UA) Urine Ketones Urine Blood Urine Nitrite Urine Bilirubin Urine Urobilinogen Ur Leukocyte Esterase Urine WBC (Auto) Urine RBC (Auto) U Hyaline Cast (Auto) U Epithel Cells (Auto) Urine Bacteria (Auto) Hyaline Casts Urine Comment Nasal Screen MRSA (PCR) Blood Type Antibody Screen Diagnostic Findings Chest X-Ray 03/17/25 13:42 XR chest 1V portable CLINICAL HISTORY: SOB COMPARISON STUDY: 06/16/2023 FINDINGS: Heart size and pulmonary vasculature are normal. No consolidation or pleural effusion. No pneumothorax. IMPRESSION: No acute findings. ACT 112: Negative or not required by law. Electronically signed by: Sergo Fabian M.D. 03/17/2025 1:59 PM Abdomen/Pelvis CT 03/17/25 14:30 CT OF THE ABDOMEN AND PELVIS WITHOUT CONTRAST CLINICAL HISTORY: Abdominal pain, N/V/D COMPARISON STUDY: No previous studies for comparison. TECHNIQUE: Axial images of the abdomen and pelvis were obtained without IV contrast. Images were reviewed in the axial, sagittal, and coronal planes. Automated exposure control was utilized for the study. A dose lowering technique was utilized adhering to the principles of ALARA. FINDINGS: Visualized lung bases are unremarkable. There is no pneumatosis, free air or portal venous gas. No renal, ureteral or bladder calculi are present. Prostate is mildly enlarged, measuring 4.9 cm in transverse diameter. Images of the pelvis are degraded by streak artifact from left hip arthroplasty. Unenhanced images of the liver, spleen, adrenal glands and pancreas are unremarkable. There is no biliary or pancreatic ductal dilatation. The gallbladder is moderately distended. There may be slight pericholecystic str anding. There is no evidence for a bowel obstruction. Colonic diverticulosis. Note is made of minimal inflammation adjacent to a diverticulum of the distal descending colon. There is no free air or abscess. There is no lymphadenopathy. There are no fluid collections. IMPRESSION: 1. Moderate gallbladder distention with possible trace pericholecystic stranding. Acute cholecystitis cannot be excluded. Right upper quadrant ultrasound is recommended. 2. Subtle acute diverticulitis of the distal descending colon. No free air or abscess. 3. No bowel obstruction. ACT 112: Negative or not required by law. Electronically signed by: Chase Restrepo M.D. 03/17/2025 3:53 PM Gallbladder Ultrasound 03/17/25 16:01 ABDOMINAL ULTRASOUND LIMITED INDICATION: Abdominal pain. TECHNIQUE: Limited upper quadrant ultrasound examination of the abdomen. COMPARISON: CT abdomen and pelvis performed on the same day is not viewable in our system FINDINGS: LIVER: Size: Measures 14.5 cm in craniocaudal length. Echogenicity: Increased Surface nodularity: None Mass: None identified. BILE DUCTS: Intrahepatic ducts: Nondilated Common bile duct diameter: 3 mm GALLBLADDER: Mildly distended without shadowing stones, sludge, wall thickening or pericholecystic fluid. Sonographic Broussard sign: Absent PANCREAS: Visualized portions appear unremarkable RIGHT KIDNEY LENGTH: 8.8 cm No shadowing stones or hydronephrosis identified. ASCITES: None identified. IMPRESSION: Echogenic liver suggesting a parenchymal process including but not limited to steatosis. Mildly distended gallbladder without sonographic evidence of cholecystitis. Electronically signed by Willie Santos 03-17-2025 5:49 PM Medications Administered Home Medications Medication Instructions Recorded Confirmed Last Taken acetaminophen 500 mg tablet 1,000 mg PO Q4H PRN Pain 06/16/23 03/17/25 Unknown (Tylenol Extra Strength) albuterol sulfate 90 mcg/actuation 2 puff inhalation Q4H PRN Wheezing 06/16/23 03/17/25 Unknown aerosol inhaler ascorbic acid (vitamin C) 1,000 mg 1 g PO DAILY 06/16/23 03/17/25 03/17/25 tablet (Vitamin C) aspirin 81 mg tablet,delayed 81 mg PO DAILY 06/16/23 03/17/25 03/17/25 release caffeine 200 mg tablet 200 mg PO DAILY 06/16/23 03/17/25 03/17/25 brkeohr-[id number]-[id number] 333 mg-133 1 tab PO DAILY 06/16/23 03/17/25 03/17/25 mg-5 mg tablet cholecalciferol (vitamin D3) 50 50 mcg PO DAILY 06/16/23 03/17/25 03/17/25 mcg (2,000 unit) capsule (Vitamin D3) cyanocobalamin (vitamin B-12) 1,000 mcg PO DAILY 06/16/23 03/17/25 03/17/25 1,000 mcg tablet (Vitamin B-12) diclofenac sodium 1 % topical gel 2 g topical QID PRN Pain 06/16/23 03/17/25 Unknown duloxetine 30 mg capsule,delayed 30 mg PO BID 06/16/23 03/17/25 03/17/25 08:00 release finasteride 5 mg tablet 5 mg PO DAILY 06/16/23 03/17/25 03/17/25 fluticasone propionate 50 2 spray intranasal DAILY 06/16/23 03/17/25 03/17/25 mcg/actuation nasal spray,suspension montelukast 10 mg tablet 10 mg PO DAILY 06/16/23 03/17/25 03/17/25 (Singulair) omeprazole 20 mg tablet,delayed 20 mg PO BIDM 06/16/23 03/17/25 03/17/25 08:00 release vitamin E 670 mg (1,000 unit) 670 mg PO DAILY 06/16/23 03/17/25 03/17/25 capsule atorvastatin 80 mg tablet 80 mg PO QAM 03/17/25 03/17/25 03/17/25 bempedoic acid 180 mg tablet 180 mg PO QAM 03/17/25 03/17/25 03/17/25 (Nexletol) clopidogrel 75 mg tablet 75 mg PO QAM 03/17/25 03/17/25 03/17/25 dupilumab 300 mg/2 mL subcutaneous 300 mg subcut .Q2WKS 03/17/25 03/17/25 Unknown pen injector (Dupixent) empagliflozin 10 mg tablet 10 mg PO QAM 03/17/25 03/17/25 03/17/25 (Jardiance) fluticasone 250 mcg-salmeterol 50 1 inh inhalation BID 03/17/25 03/17/25 03/17/25 08:00 mcg/dose blistr powdr for inhalation (Advair Diskus) isosorbide mononitrate 30 mg 15 mg PO QAM 03/17/25 03/17/25 03/17/25 tablet,extended release 24 hr melatonin 12 mg tablet 12 mg PO HS 03/17/25 03/17/25 03/16/25 metoprolol succinate 25 mg 37.5 mg PO QAM 03/17/25 03/17/25 03/17/25 tablet,extended release 24 hr sacubitril 24 mg-valsartan 26 mg 1 tab PO BID 03/17/25 03/17/25 03/17/25 08:00 tablet spironolactone 25 mg tablet 25 mg PO QAM 03/17/25 03/17/25 03/17/25 torsemide 20 mg tablet 20 mg PO QAM 03/17/25 03/17/25 03/17/25 Active Medications Generic Name Dose Route Start Last Admin Trade Name Fre PRN Reason Stop Dose Admin Aspirin 81 mg 03/18/25 09:00 03/18/25 08:05 Aspirin 81 Mg Ectab PO 04/17/25 08:59 81 mg DAILY HUMA Administration Clopidogrel Bisulfate 75 mg 03/18/25 09:00 03/18/25 08:05 Clopidogrel Bisulfate 75 Mg Tab PO 04/17/25 08:59 75 mg QAM HUMA Administration Duloxetine HCl 30 mg 03/18/25 00:07 03/18/25 08:05 Duloxetine Hcl 30 Mg Cap PO 04/17/25 00:06 30 mg BID HUMA Administration Finasteride 5 mg 03/18/25 09:00 03/18/25 08:05 Finasteride 5 Mg Tab PO 04/17/25 08:59 5 mg DAILY HUMA Administration Fluticasone/Vilanterol 1 puffs 03/18/25 09:00 03/18/25 08:05 Fluticasone/Vilanterol 200/25mcg 14 Puffs/Inhaler INH 04/17/25 08:59 1 puffs DAILY HUMA Administration Heparin Sodium (Porcine) 5,000 units 03/18/25 00:07 03/18/25 06:26 Heparin Sod 5,000 Unit/0.5 Ml Vial SQ 04/17/25 00:06 5,000 units Q8 HUMA Administration Norepinephrine Bitartrate 4 mg in 250 mls @ 23.835 mls/hr 03/17/25 21:00 03/18/25 06:56 Levophed/D5w IV 04/16/25 20:59 0.07 mcg/kg/min .[id number] HUMA 23.8 mls/hr Titration Protocol 0.07 MCG/KG/MIN Piperacillin Sod/Tazobactam Sod 4.5 gm in 100 mls @ 25 mls/hr 03/18/25 00:30 03/18/25 07:42 Zosyn IV 03/28/25 00:29 25 mls/hr Q8H HUMA Administration Protocol Sodium Bicarbonate 150 meq/ 1,150 mls @ 75 mls/hr 03/18/25 07:00 03/18/25 07:35 Dextrose IV 03/21/25 06:59 75 mls/hr .[id number] HUMA Administration Melatonin 9 mg 03/18/25 00:50 03/18/25 01:06 Melatonin 3 Mg Tab PO 04/17/25 00:49 9 mg HS HUMA Administration Montelukast Sodium 10 mg 03/18/25 09:00 03/18/25 08:05 Montelukast Sodium 10 Mg Tablet PO 04/17/25 08:59 10 mg DAILY HUMA Administration Pantoprazole Sodium 40 mg 03/18/25 08:00 03/18/25 07:43 Pantoprazole 40 Mg Tab PO 04/17/25 07:59 40 mg BIDM HUMA Administration Coding Level of Care Code 51950 CRITICAL CARE 1ST 30-74M Diagnoses Septic shock A41.9; R65.21 Acute renal failure superimposed on stage 3 chronic kidney disease N17.9; N18.30 Rhabdomyolysis M62.82 Chronic heart failure with mildly reduced ejection fraction (HFmrEF, 41-49%) I50.22 Uremic acidosis N25.89 Demand ischemia of myocardium I24.89 Diverticulitis K57.92 Time Spent (min) 45
[2025-03-18] MEDS ORDERED: METOPROLOL SUCC 25MG EXT REL TAB PO SCH (09:00)
[2025-03-18] MEDS: FAMOTIDINE 20MG IV PUSH 20 MG/5 ML SYR IV SCH (10:47)
--- NOTE | 2025-03-18 11:17 | Hospitalist Progress Note ---
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 Laboratory testing consistent with rhabdomyolysis as well. Patient still critically ill dependent on pressors to maintain adequate blood pressure. Requires hospital level care and interventions, frequent monitoring and laboratory studies. Maintain in ICU, titrate Levophed off as able for maintaining a MAP of greater than 65 Continue empiric antibiotics for presumed diverticulitis. Advancing diet as tolerated, patient continues to have significant nausea vomiting may need to consider HIDA scan for gallbladder function Renal function has significantly improved with hydration, continue to monitor Monitor electrolytes Continue care and coordination with head of loss prevention Attempted to contact significant other, tyrel Vasquez answer Admission and Anticipated Discharge Date Admission Date: March 17, 2025 Subjective Patient denies any specific complaints. Denies shortness of breath. No chest pain. No lightheadedness. Actually feels a little bit better than when he came in. Nurse reports that he did okay with breakfast this morning. Did admit that he was not eating or drinking very well for at least 2 weeks. It was just the last for 5 days he was also not eating and having nausea and diarrhea. Physical Exam Physical Exam: Constitutional: Alert, moderately ill HEENT: Mucous membranes moist. Lungs: Decreased breath sounds, Few crackles at bases CV: S1-S2, regular Abdomen: Soft, nontender, nondistended Extremities: No significant edema Neuro: No focal deficits generally weak Psych: Cooperative, normal mood Results & Data Results & Data Vital Signs (Past 12 Hours) Vital Signs Temp Pulse Resp BP BP Pulse Ox O2 Del Method 03/18/25 09:34 73/55 L 03/18/25 08:00 82 03/18/25 08:00 36.7 C 78 19 103/71 97 03/18/25 07:51 36.6 C 03/18/25 07:15 91/62 L 03/18/25 07:15 36.6 C 83 15 96 03/18/25 07:00 36.6 C 83 17 94 Room Air 03/18/25 05:48 36.6 C 82 16 96 03/18/25 05:46 79/62 L 03/18/25 05:30 83/60 L 03/18/25 05:30 36.6 C 81 17 97 03/18/25 05:23 83/55 L 03/18/25 05:09 36.6 C 81 15 97 03/18/25 05:06 36.6 C 82 16 96 03/18/25 04:48 36.5 C 81 16 96 03/18/25 04:46 90/63 L 03/18/25 04:45 81/62 L 03/18/25 04:37 93/66 L 03/18/25 04:36 36.5 C 79 16 96 03/18/25 04:30 78/61 L 03/18/25 04:27 36.5 C 81 15 95 03/18/25 04:15 36.5 C 80 14 96 03/18/25 04:15 87/61 L 03/18/25 04:03 91/63 L 03/18/25 04:00 36.6 C 83 16 94 03/18/25 03:45 84/56 L 03/18/25 03:45 36.6 C 82 15 95 03/18/25 03:30 36.7 C 82 16 94 03/18/25 03:30 77/56 L 03/18/25 03:21 36.7 C 82 18 94 03/18/25 03:15 82/56 L 03/18/25 03:12 36.7 C 81 16 96 03/18/25 03:06 36.7 C 80 16 95 03/18/25 03:01 80/56 L 03/18/25 02:30 82/54 L 03/18/25 02:27 36.7 C 84 16 97 03/18/25 02:21 36.7 C 81 17 97 03/18/25 02:15 80/50 L 03/18/25 02:12 36.7 C 80 18 98 03/18/25 02:06 36.7 C 77 17 95 03/18/25 02:01 72/54 L 03/18/25 01:54 36.7 C 73 13 95 03/18/25 01:46 96/64 L 03/18/25 01:30 93/57 L 03/18/25 01:27 36.8 C 73 17 96 03/18/25 01:24 36.8 C 74 12 96 03/18/25 01:15 98/64 L 03/18/25 01:06 36.8 C 74 19 99 03/18/25 01:03 36.8 C 79 17 96 03/18/25 01:00 91/59 L 03/18/25 00:54 36.8 C 76 17 98 03/18/25 00:45 91/63 L 03/18/25 00:24 36.9 C 77 18 97 03/18/25 00:18 36.9 C 80 21 96 03/18/25 00:15 95/62 L 03/18/25 00:12 36.9 C 79 22 96 03/18/25 00:03 36.9 C 75 22 95 03/18/25 00:00 82/67 L 03/18/25 00:00 75 03/18/25 00:00 Room Air 03/17/25 23:57 36.9 C 84 14 93 03/17/25 23:45 77 17 03/17/25 23:44 102/67 03/17/25 23:24 75 22 100/71 96 03/17/25 23:20 100/71 03/17/25 23:15 108/82 03/17/25 23:10 115/79 Diagnostic Findings Reviewed imaging, laboratory and diagnostic studies. Pertinent findings as below. WBCs 9.0 Hemoglobin 0.4 Platelets of 285 BUN 86 Creatinine 2.76, improved CPK 5047 Troponin 108.4, trending down AST 193 ALT 102 Gallbladder ultrasound no evidence of cholecystitis Blood cultures pending (8) COPD (chronic obstructive pulmonary disease) COPD type: unspecified COPD Qualified Code(s): J44.9 - Chronic obstructive pulmonary disease, unspecified
--- NOTE | 2025-03-18 12:23 | Surgery Consultation ---
Date of Consultation March 18, 2025 Assessment & Plan (1) Shock: distended gallbladder without evidence of cholecystitis no abdominal pain WBC nL gallbladder likely reactive from acute illness no surgical issues will sign off History of Present Illness Attending Physician: Anthony Jenkins DO History of Present Illness This is a 74-year-old male admitted through the emergency department to the ICU for acute renal failure superimposed on stage 3 chronic kidney disease, chronic heart failure with mildly reduced ejection fraction, hypovolemia due to dehydration with shock and uremic acidosis. This morning he is alert and has no complaints of abdominal pain or any other GI symptoms. Allergies Allergy/AdvReac Type Severity Reaction Status Date / Time No Known Allergies Allergy Verified 03/17/25 16:40 Home Medications Medication Instructions Recorded Confirmed Type acetaminophen 500 mg tablet 1,000 mg PO Q4H PRN Pain 06/16/23 03/17/25 History (Tylenol Extra Strength) albuterol sulfate 90 mcg/actuation 2 puff inhalation Q4H PRN Wheezing 06/16/23 03/17/25 History aerosol inhaler ascorbic acid (vitamin C) 1,000 mg 1 g PO DAILY 06/16/23 03/17/25 History tablet (Vitamin C) aspirin 81 mg tablet,delayed 81 mg PO DAILY 06/16/23 03/17/25 History release caffeine 200 mg tablet 200 mg PO DAILY 06/16/23 03/17/25 History jjozxos-jrvwwatjl-twse 333 mg-133 1 tab PO DAILY 06/16/23 03/17/25 History mg-5 mg tablet cholecalciferol (vitamin D3) 50 50 mcg PO DAILY 06/16/23 03/17/25 History mcg (2,000 unit) capsule (Vitamin D3) cyanocobalamin (vitamin B-12) 1,000 mcg PO DAILY 06/16/23 03/17/25 History 1,000 mcg tablet (Vitamin B-12) diclofenac sodium 1 % topical gel 2 g topical QID PRN Pain 06/16/23 03/17/25 History duloxetine 30 mg capsule,delayed 30 mg PO BID 06/16/23 03/17/25 History release finasteride 5 mg tablet 5 mg PO DAILY 06/16/23 03/17/25 History fluticasone propionate 50 2 spray intranasal DAILY 06/16/23 03/17/25 History mcg/actuation nasal spray,suspension montelukast 10 mg tablet 10 mg PO DAILY 06/16/23 03/17/25 History (Singulair) omeprazole 20 mg tablet,delayed 20 mg PO BIDM 06/16/23 03/17/25 History release vitamin E 670 mg (1,000 unit) 670 mg PO DAILY 06/16/23 03/17/25 History capsule atorvastatin 80 mg tablet 80 mg PO QAM 03/17/25 03/17/25 History bempedoic acid 180 mg tablet 180 mg PO QAM 03/17/25 03/17/25 History (Nexletol) clopidogrel 75 mg tablet 75 mg PO QAM 03/17/25 03/17/25 History dupilumab 300 mg/2 mL subcutaneous 300 mg subcut .Q2WKS 03/17/25 03/17/25 History pen injector (Dupixent) empagliflozin 10 mg tablet 10 mg PO QAM 03/17/25 03/17/25 History (Jardiance) fluticasone 250 mcg-salmeterol 50 1 inh inhalation BID 03/17/25 03/17/25 History mcg/dose blistr powdr for inhalation (Advair Diskus) isosorbide mononitrate 30 mg 15 mg PO QAM 03/17/25 03/17/25 History tablet,extended release 24 hr melatonin 12 mg tablet 12 mg PO HS 03/17/25 03/17/25 History metoprolol succinate 25 mg 37.5 mg PO QAM 03/17/25 03/17/25 History tablet,extended release 24 hr sacubitril 24 mg-valsartan 26 mg 1 tab PO BID 03/17/25 03/17/25 History tablet spironolactone 25 mg tablet 25 mg PO QAM 03/17/25 03/17/25 History torsemide 20 mg tablet 20 mg PO QAM 03/17/25 03/17/25 History Patient History Social History Smoking Status: Former smoker Tobacco Type: Cigarettes Smoking End Date: March 2023; Second Hand Exposure: No; Tobacco Cessation Education Requested by Patient: No Hx Alcohol Use: No Hx Substance Use: No Preferred Language: Tristanian Communication Ability: Effective Residential Carpet Installer Required: No Beliefs That Will Affect Care: None Current Living Situation: Other Current Living Situation Comment: pt lives w/ friend Christina Other Information That Helps Us Care for You: No Feels Safe at Home: Yes Safety Concerns: Feels Safe At This Time Assistive Devices: Cane and Walker Review of Systems Constitutional: no fever and no chills Respiratory: no dyspnea Cardiovascular: no chest pain Gastrointestinal: + diarrhea/loose stools; no abdominal pa in, no nausea and no vomiting Neurologic: no localized weakness Psychiatric: no behavioral changes Hematologic / Lymphatic: no easy bleeding and no easy bruising Physical Exam Constitutional: WD/WN, vitals as above Eyes: no scleral abnormality Neck: trachea midline Respiratory: normal respiratory effort Cardiovascular: RRR, no murmur, no edema Gastrointestinal (Abdomen): Inspection/Auscultation: abdomen normal to inspection and normal bowel sounds; abdomen not distended Percussion/Palpation: abdomen soft; abdomen nontender Musculoskeletal: Head/Neck/Chest: normocephalic and head atraumatic Skin: no rashes, warm and dry Results & Data Vital Signs (Past 12 Hours) Vital Signs Temp Pulse Resp BP BP BP Pulse Ox 03/18/25 12:00 108/73 03/18/25 11:58 101/68 03/18/25 11:57 37.0 C 88 22 97 03/18/25 11:30 101/68 03/18/25 11:30 37.0 C 84 15 97 03/18/25 10:30 89/65 L 03/18/25 10:30 37.0 C 83 20 98 03/18/25 10:00 85/63 L 03/18/25 10:00 36.9 C 91 H 15 95 03/18/25 09:34 73/55 L 03/18/25 09:30 73/55 L 03/18/25 09:06 36.9 C 93 H 16 96 03/18/25 09:00 80/55 L 03/18/25 08:27 36.8 C 84 14 97 03/18/25 08:00 103/71 03/18/25 08:00 82 03/18/25 08:00 36.7 C 78 19 103/71 97 03/18/25 07:51 36.6 C 03/18/25 07:15 91/62 L 03/18/25 07:15 36.6 C 83 15 96 03/18/25 07:00 36.6 C 83 17 94 03/18/25 05:48 36.6 C 82 16 96 03/18/25 05:46 79/62 L 03/18/25 05:30 83/60 L 03/18/25 05:30 36.6 C 81 17 97 03/18/25 05:23 83/55 L 03/18/25 05:09 36.6 C 81 15 97 03/18/25 05:06 36.6 C 82 16 96 03/18/25 04:48 36.5 C 81 16 96 03/18/25 04:46 90/63 L 03/18/25 04:45 81/62 L 03/18/25 04:37 93/66 L 03/18/25 04:36 36.5 C 79 16 96 03/18/25 04:30 78/61 L 03/18/25 04:27 36.5 C 81 15 95 03/18/25 04:15 36.5 C 80 14 96 03/18/25 04:15 87/61 L 03/18/25 04:03 91/63 L 03/18/25 04:00 36.6 C 83 16 94 03/18/25 03:45 84/56 L 03/18/25 03:45 36.6 C 82 15 95 03/18/25 03:30 36.7 C 82 16 94 03/18/25 03:30 77/56 L 03/18/25 03:21 36.7 C 82 18 94 03/18/25 03:15 82/56 L 03/18/25 03:12 36.7 C 81 16 96 03/18/25 03:06 36.7 C 80 16 95 03/18/25 03:01 80/56 L 03/18/25 02:30 82/54 L 03/18/25 02:27 36.7 C 84 16 97 03/18/25 02:21 36.7 C 81 17 97 03/18/25 02:15 80/50 L 03/18/25 02:12 36.7 C 80 18 98 03/18/25 02:06 36.7 C 77 17 95 03/18/25 02:01 72/54 L 03/18/25 01:54 36.7 C 73 13 95 03/18/25 01:46 96/64 L 03/18/25 01:30 93/57 L 03/18/25 01:27 36.8 C 73 17 96 03/18/25 01:24 36.8 C 74 12 96 03/18/25 01:15 98/64 L 03/18/25 01:06 36.8 C 74 19 99 03/18/25 01:03 36.8 C 79 17 96 03/18/25 01:00 91/59 L 03/18/25 00:54 36.8 C 76 17 98 03/18/25 00:45 91/63 L 03/18/25 00:24 36.9 C 77 18 97 O2 Del Method 03/18/25 12:00 03/18/25 11:58 03/18/25 11:57 03/18/25 11:30 03/18/25 11:30 03/18/25 10:30 03/18/25 10:30 03/18/25 10:00 03/18/25 10:00 03/18/25 09:34 03/18/25 09:30 03/18/25 09:06 03/18/25 09:00 03/18/25 08:27 03/18/25 08:00 03/18/25 08:00 03/18/25 08:00 03/18/25 07:51 03/18/25 07:15 03/18/25 07:15 03/18/25 07:00 Room Air 03/18/25 05:48 03/18/25 05:46 03/18/25 05:30 03/18/25 05:30 03/18/25 05:23 03/18/25 05:09 03/18/25 05:06 03/18/25 04:48 03/18/25 04:46 03/18/25 04:45 03/18/25 04:37 03/18/25 04:36 03/18/25 04:30 03/18/25 04:27 03/18/25 04:15 03/18/25 04:15 03/18/25 04:03 03/18/25 04:00 03/18/25 03:45 03/18/25 03:45 03/18/25 03:30 03/18/25 03:30 03/18/25 03:21 03/18/25 03:15 03/18/25 03:12 03/18/25 03:06 03/18/25 03:01 03/18/25 02:30 03/18/25 02:27 03/18/25 02:21 03/18/25 02:15 03/18/25 02:12 03/18/25 02:06 03/18/25 02:01 03/18/25 01:54 03/18/25 01:46 03/18/25 01:30 03/18/25 01:27 03/18/25 01:24 03/18/25 01:15 03/18/25 01:06 03/18/25 01:03 03/18/25 01:00 03/18/25 00:54 03/18/25 00:45 03/18/25 00:24 Diagnostic Findings ABDOMINAL ULTRASOUND LIMITED INDICATION: Abdominal pain. TECHNIQUE: Limited upper quadrant ultrasound examination of the abdomen. COMPARISON: CT abdomen and pelvis performed on the same day is not viewable in our system FINDINGS: LIVER: Size: Measures 14.5 cm in craniocaudal length. Echogenicity: Increased Surface nodularity: None Mass: None identified. BILE DUCTS: Intrahepatic ducts: Nondilated Common bile duct diameter: 3 mm GALLBLADDER: Mildly distended without shadowing stones, sludge, wall thickening or pericholecystic fluid. Sonographic Broussard sign: Absent PANCREAS: Visualized portions appear unremarkable RIGHT KIDNEY LENGTH: 8.8 cm No shadowing stones or hydronephrosis identified. ASCITES: None identified. IMPRESSION: Echogenic liver suggesting a parenchymal process including but not limited to steatosis. Mildly distended gallbladder without sonographic evidence of cholecystitis.
--- NOTE | 2025-03-18 15:58 | XCELERA ---
[id number] \\[id number]
[2025-03-19 05:04] LABS: Hematocrit (blood only) 33.3 % (42.0-52.0); Hemoglobin 11.0 g/dl (14.0-18.0); Mean Corpuscular Hemoglobin 30.0 pg (25.0-34.0); Mean Corpuscular Volume 90.7 fL (80.0-100.0); Platelet Count 244 K/uL (130-400); RDW Standard Deviation 47.1 fL (36.4-46.3); Red Blood Count 3.67 M/uL (4.70-6.10); White Blood Count 7.91 K/ul (4.8-10.8)
[2025-03-19 05:45] LABS: Anion Gap 10.0 (3-11); Blood Urea Nitrogen 52.0 mg/dl (6-23); Calcium 8.8 mg/dl (8.6-10.3); Carbon Dioxide 20.0 mmol/L (21-32); Chloride 108.0 mmol/L (98-107); Creatine Kinase 2868.0 U/L (30-223); Creatinine Clr Calc Pharmacy 35.2 ml/min; Glucose 131.0 mg/dl (70-99(Fasting)); Magnesium 1.9 mg/dl (1.7-2.4); Potassium 3.4 mmol/L (3.5-5.1); Sodium 138.0 mmol/L (136-145)
[2025-03-19] MEDS: POTASSIUM CHLORIDE CRTAB 20 MEQ TABCR PO STA (06:10)
[2025-03-19] MEDS: LACTATED RINGER'S 1,000 ML IV SCH (06:11)
--- NOTE | 2025-03-19 09:34 | Hospitalist Progress Note ---
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 Question if symptoms are triggered by mild diverticulitis. Patient overall improving Continue IV hydration, renal function steadily improving Replace electrolytes Increase activity as tolerated Titrate Levophed to off maintaining a MAP of 65, this morning blood pressure significantly improved and MAP was 96 at the time of my evaluation Continue antibiotics for diverticulitis Continue to monitor tolerance of diet Continue outpatient treatment for COPD/inhalers. Admission and Anticipated Discharge Date Admission Date: March 17, 2025 Subjective Uneventful night. No acute issues. Patient states he is feeling better. Was happy he was able to tolerate diet without nausea or vomiting. Physical Exam Physical Exam: Constitutional: Alert, no acute distress, less ill in appearance compared to admit HEENT: Mucous membranes moist. Lungs: Clear to auscultation, decreased, no wheezes rales or rhonchi CV: S1-S2, regular Abdomen: Soft, nontender, nondistended Extremities: No significant edema Neuro: No focal deficits, generally weak Psych: Cooperative, normal mood Results & Data Results & Data Vital Signs (Past 12 Hours) Vital Signs Temp Pulse Resp BP Pulse Ox 03/19/25 04:00 88/66 L 03/19/25 03:57 36.9 C 94 H 15 96 03/19/25 03:33 36.9 C 94 H 15 98 03/19/25 03:30 123/77 03/19/25 03:24 36.9 C 99 H 23 95 03/19/25 03:12 36.9 C 101 H 20 96 03/19/25 03:00 96/73 L 03/19/25 02:33 37.0 C 95 H 17 96 03/19/25 02:30 101/66 03/19/25 02:18 37.0 C 97 H 18 95 03/19/25 02:15 37.0 C 96 H 18 95 03/19/25 02:00 37.0 C 95 H 18 96 03/19/25 02:00 90/67 L 03/19/25 01:45 EST 36.9 C 94 H 11 L 96 03/19/25 01:30 EST 100/74 03/19/25 01:30 EST 37.0 C 101 H 22 96 03/19/25 01:15 EST 37.0 C 92 H 15 97 03/19/25 01:03 EST 37.1 C 99 H 18 96 03/19/25 01:00 EST 91/66 L 03/19/25 00:54 37.1 C 102 H 18 96 03/19/25 00:45 37.1 C 105 H 13 97 03/19/25 00:36 37.1 C 101 H 22 93 03/19/25 00:00 94/63 L 03/19/25 00:00 37.2 C 95 H 19 96 03/19/25 00:00 96 H 03/18/25 23:48 37.2 C 96 H 20 96 03/18/25 23:42 93/62 L 03/18/25 23:30 76/57 L 03/18/25 23:21 37.3 C 98 H 20 98 03/18/25 23:06 37.3 C 99 H 17 99 03/18/25 23:00 91/61 L 03/18/25 22:54 37.2 C 96 H 19 97 03/18/25 22:39 37.2 C 96 H 15 97 Diagnostic Findings Reviewed imaging, laboratory and diagnostic studies. Pertinent findings as below. CPK 2868, improved Creatinine 2.1, improved BUN 52, improved Potassium 3.4 Echocardiogram ejection fraction 60 to 65% with normal left ventricular and right ventricular function. (8) COPD (chronic obstructive pulmonary disease) COPD type: unspecified COPD Qualified Code(s): J44.9 - Chronic obstructive pulmonary disease, unspecified
[2025-03-19] MEDS: POLYETHYLENE (MIRALAX) 17 GM PACK PO SCH (11:06)
[2025-03-19] MEDS: POTASSIUM CHLORIDE CRTAB 20 MEQ TABCR PO ONE (11:06)
--- NOTE | 2025-03-19 13:51 | Critical Care Progress Note ---
Date of Service March 19, 2025 Assessment & Plan (1) Septic shock: Plan: * Persistent hypotension requiring vasopressors despite adequate volume- repletion * Suspected infectious source diverticulitis * HEATHER on CKD-3 * Continue antibiotics * Taper Vasopressors to MAP 65-70 mmHg * Will try additional fluid-challenges (2) Acute renal failure superimposed on stage 3 chronic kidney disease: Plan: * Multifactorial * Intravascular hypovolemia secondary to GI losses * Impaired renal perfusion secondary to septic shock, hypotension, and intravascular-volume depletion * Rhabdomyolysis * Creatinine improving with overall improved BP and fluid-repletion * Avoid nephrotoxic medications. 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 (6) Demand ischemia of myocardium: Plan: * Elevated Troponin without ECG changes * Suspected on basis of myocardial supply-demand mismatch associated with septic shock (7) Diverticulitis: Plan: * Noted on CT of abdomen * Contributing to GI symptoms * Continue antibiotics Plan I have personally spent 40 minutes of critical care time in the direct management of this patient. This is a life/limb threatening event. This includes time spent evaluating the patient, direct bedside care, chart review, placing orders, interpreting diagnostic studies, communicating with consultants, attending providers, patient, and family members, as well as required patient management activities. This time is exclusive of all separately-billable procedures and teaching time, and separate from and in addition to any other critical care service time. Housekeeping items: Feeding/Fluids: Tolerating clear liquids. No supplemental maintenance fluids. Analgesia: None needed at this time. Sedation: None needed at this time. Thromboprophylaxis: SC Heparin. Head-up Position: Not applicable Ulcer Prophylaxis: IV Pepcid. Will switch to PO. Glycemic Control: None needed at this time. Spontaneous Breathing Trial: Not applicable Bowel Care: None needed at this time. Indwelling Catheters/ Removal: Watts catheter for accurate I/O. Drug de-escalation: Continue Zosyn. Disposition: Continue in ICU at least until off of vasopressors. Admission and Anticipated Discharge Date Admission Date: March 17, 2025 Subjective The patient is a very pleasant 74-year-old male who presented to the ED accompanied by his significant other for evaluation of persistent nausea, vomiting, and diarrhea ongoing for the past four days. He reported an inability to tolerate any oral intake, including fluids, and described associated generalized weakness and shortness of breath. He also noted mild, diffuse abdominal pain preceding the onset of vomiting and diarrhea. On arrival, the patient was found to be hypotensive with a blood pressure of 77/56 mmHg, but was afebrile and not tachycardic. Initial laboratory evaluation demonstrated significant acute kidney injury with BUN/Cr of 111/4.16 (markedly increased from baseline), hyponatremia, metabolic acidosis, and mild transaminitis. His hemoglobin was decreased, but white blood cell count was within normal limits. Procalcitonin was elevated, and high- sensitivity troponin was mildly elevated. Imaging included a chest x-ray negative for acute cardiopulmonary pathology, and a CT scan of the abdomen and pelvis which showed moderate gallbladder distention with possible pericholecystic stranding, as well as subtle acute diverticulitis of the distal descending colon. There was no evidence of bowel obstruction, free air, or abscess. Right upper quadrant ultrasound was obtained, and it was interpreted as showing mildly distended gallbladder without sonographic evidence for cholecy stitis. The patient received a total of 1.5 liters of intravenous normal saline in divided boluses, with some initial improvement in blood pressure, but he remained hypotensive, necessitating initiation of norepinephrine for hemodynamic support. He was started on broad-spectrum antibiotics (Zosyn) for suspected intra-abdominal infection. In summary, the patient was admitted to the ICU in stable but serious condition for management of sepsis with organ dysfunction, acute kidney injury superimposed on stage 3 CKD, shock, uremic acidosis, and acute diverticulitis. He required vasopressor support and close monitoring. His past medical history included CHF with mildly reduced ejection fraction (HFmrEF, 41-49%), COPD, CKD stage 3, hypertension, PUD, BPH, and a history of tobacco use disorder. Note from 03/18/2025: Gradual improvement in renal function. Continues to need Vasopressors. Remains on Bicarbonate drip. Tolerating clear liquids. Remains on Zosyn. Will try small LR boluses hoping to discontinue vasopressors soon. Note from 03/19/2025: Remains on Levophed. Renal function improving. Acidosis improved. Off of Bicarbonate drip. Will try more LR boluses. Review of Systems Review of Systems: All systems reviewed & are unremarkable except as noted in HPI & below Physical Exam Physical Exam: General: In no acute distress, breathing room-air. Obese. Skin: Warm and dry to touch. Few facial lesions suggestive of seborrheic keratosis. Respiratory: Diffusely decreased breath sounds, no wheezing or crackles. No use of accessory muscles and no prolonged exhalation. Cardiac: Distant sounds, regular rhythm, no murmurs, no gallops, no rubs; could not appreciate JV pulse elevation. GI: Soft, active bowel-sounds. No organomegaly or RUQ tenderness. Extremities No cyanosis,no edema. Neuro: No gross motor deficits. Seems appropriate. No facial-droop. Speech is clear. Results & Data Results & Data Vital Signs (Past 12 Hours) Vital Signs Temp Pulse Resp BP Pulse Ox 03/19/25 13:00 37.5 C 116 H 24 88/61 L 96 03/19/25 12:12 37.5 C 113 H 23 86/70 L 96 03/19/25 11:03 37.4 C 102 H 13 106/72 97 03/19/25 10:33 37.4 C 103 H 20 98/66 L 96 03/19/25 10:18 37.4 C 108 H 18 96/72 L 97 03/19/25 09:39 37.3 C 110 H 19 78/56 L 96 03/19/25 09:03 37.3 C 118 H 19 81/58 L 93 03/19/25 08:30 37.3 C 113 H 22 87/65 L 97 03/19/25 08:00 37.2 C 103 H 13 102/63 98 03/19/25 07:36 37.1 C 98 H 12 125/78 98 03/19/25 07:08 37.0 C 93 H 12 98/64 L 97 03/19/25 04:00 88/66 L 03/19/25 03:57 36.9 C 94 H 15 96 03/19/25 03:33 36.9 C 94 H 15 98 03/19/25 03:30 123/77 03/19/25 03:24 36.9 C 99 H 23 95 03/19/25 03:12 36.9 C 101 H 20 96 03/19/25 03:00 96/73 L 11/02/25 02:33 37.0 C 95 H 17 96 03/19/25 02:30 101/66 03/19/25 02:18 37.0 C 97 H 18 95 03/19/25 02:15 37.0 C 96 H 18 95 03/19/25 02:00 37.0 C 95 H 18 96 03/19/25 02:00 90/67 L Laboratory Results 03/17/25 14:49 Aerobic Blood Culture - Preliminary Blood No growth in Aerobic bottle after 24 hours. Anaerobic Blood Culture - Preliminary No growth in Anaerobic bottle after 24 hours. 03/17/25 14:49 Aerobic Blood Culture - Preliminary Blood No growth in Aerobic bottle after 24 hours. Anaerobic Blood Culture - Preliminary No growth in Anaerobic bottle after 24 hours. 03/19/25 03/19/25 03/18/25 11:12 04:41 22:06 WBC 7.91 RBC 3.67 L Hgb 11.0 L Hct 33.3 L MCV 90.7 MCH 30.0 MCHC 33.0 RDW Std Deviation 47.1 H RDW Coeff of Grace 14.3 Plt Count 244 MPV 9.7 Sodium 138 Potassium 3.4 L Chloride 108 H Carbon Dioxide 20 L Anion Gap 10 BUN 52 H D Creatinine 2.12 H D Est Cr Clr Drug Dosing 35.2 eGFR 32.26 BUN/Creatinine Ratio 24.5 H Glucose 131 H POC Glucose 122 H 124 H Calcium 8.8 Phosphorus 2.5 D Magnesium 1.9 Total Creatine Kinase 2868 H Random Cortisol 11.57 03/18/25 16:18 WBC RBC Hgb Hct MCV MCH MCHC RDW Std Deviation RDW Coeff of Grace Plt Count MPV Sodium Potassium Chloride Carbon Dioxide Anion Gap BUN Creatinine Est Cr Clr Drug Dosing eGFR BUN/Creatinine Ratio Glucose POC Glucose 135 H Calcium Phosphorus Magnesium Total Creatine Kinase Random Cortisol Medications Administered Home Medications Medication Instructions Recorded Confirmed Last Taken acetaminophen 500 mg tablet 1,000 mg PO Q4H PRN Pain 06/16/23 03/17/25 Unknown (Tylenol Extra Strength) albuterol sulfate 90 mcg/actuation 2 puff inhalation Q4H PRN Wheezing 06/16/23 03/17/25 Unknown aerosol inhaler ascorbic acid (vitamin C) 1,000 mg 1 g PO DAILY 01/30/24 10/31/25 10/31/25 tablet (Vitamin C) aspirin 81 mg tablet,delayed 81 mg PO DAILY 06/16/23 03/17/25 03/17/25 release caffeine 200 mg tablet 200 mg PO DAILY 06/16/23 03/17/25 03/17/25 opgddux-[id number] 333 mg-133 1 tab PO DAILY 06/16/23 03/17/25 03/17/25 mg-5 mg tablet cholecalciferol (vitamin D3) 50 50 mcg PO DAILY 06/16/23 03/17/25 03/17/25 mcg (2,000 unit) capsule (Vitamin D3) cyanocobalamin (vitamin B-12) 1,000 mcg PO DAILY 06/16/23 03/17/25 03/17/25 1,000 mcg tablet (Vitamin B-12) diclofenac sodium 1 % topical gel 2 g topical QID PRN Pain 06/16/23 03/17/25 Unknown duloxetine 30 mg capsule,delayed 30 mg PO BID 06/16/23 03/17/25 03/17/25 08:00 release finasteride 5 mg tablet 5 mg PO DAILY 06/16/23 03/17/25 03/17/25 fluticasone propionate 50 2 spray intranasal DAILY 06/16/23 03/17/25 03/17/25 mcg/actuation nasal spray,suspension montelukast 10 mg tablet 10 mg PO DAILY 06/16/23 03/17/25 03/17/25 (Singulair) omeprazole 20 mg tablet,delayed 20 mg PO BIDM 06/16/23 03/17/25 03/17/25 08:00 release vitamin E 670 mg (1,000 unit) 670 mg PO DAILY 06/16/23 03/17/25 03/17/25 capsule atorvastatin 80 mg tablet 80 mg PO QAM 03/17/25 03/17/25 03/17/25 bempedoic acid 180 mg tablet 180 mg PO QAM 03/17/25 03/17/25 03/17/25 (Nexletol) clopidogrel 75 mg tablet 75 mg PO QAM 03/17/25 03/17/25 03/17/25 dupilumab 300 mg/2 mL subcutaneous 300 mg subcut .Q2WKS 03/17/25 03/17/25 Unknown pen injector (Dupixent) empagliflozin 10 mg tablet 10 mg PO QAM 03/17/25 03/17/25 03/17/25 (Jardiance) fluticasone 250 mcg-salmeterol 50 1 inh inhalation BID 03/17/25 03/17/25 03/17/25 08:00 mcg/dose blistr powdr for inhalation (Advair Diskus) isosorbide mononitrate 30 mg 15 mg PO QAM 03/17/25 03/17/25 03/17/25 tablet,extended release 24 hr melatonin 12 mg tablet 12 mg PO HS 03/17/25 03/17/25 03/16/25 metoprolol succinate 25 mg 37.5 mg PO QAM 03/17/25 03/17/25 03/17/25 tablet,extended release 24 hr sacubitril 24 mg-valsartan 26 mg 1 tab PO BID 03/17/25 03/17/25 03/17/25 08:00 tablet spironolactone 25 mg tablet 25 mg PO QAM 03/17/25 03/17/25 03/17/25 torsemide 20 mg tablet 20 mg PO QAM 03/17/25 03/17/25 03/17/25 Active Medications Generic Name Dose Route Start Last Admin Trade Name Freq PRN Reason Stop Dose Admin Aspirin 81 mg 03/18/25 09:00 03/19/25 08:12 Aspirin 81 Mg Ectab PO 04/17/25 08:59 81 mg DAILY HUMA Administration Clopidogrel Bisulfate 75 mg 03/18/25 09:00 03/19/25 08:12 Clopidogrel Bisulfate 75 Mg Tab PO 04/17/25 08:59 75 mg QAM HUMA Administration Duloxetine HCl 30 mg 03/18/25 00:07 03/19/25 08:12 Duloxetine Hcl 30 Mg Cap PO 04/17/25 00:06 30 mg BID HUMA Administration Finasteride 5 mg 03/18/25 09:00 03/19/25 08:11 Finasteride 5 Mg Tab PO 04/17/25 08:59 5 mg DAILY HUMA Administration Fluticasone/Vilanterol 1 puffs 03/18/25 09:00 03/19/25 08:11 Fluticasone/Vilanterol 200/25mcg 14 Puffs/Inhaler INH 04/17/25 08:59 1 puffs DAILY HUMA Administration Heparin Sodium (Porcine) 5,000 units 03/18/25 00:07 03/19/25 06:10 Heparin Sod 5,000 Unit/0.5 Ml Vial SQ 04/17/25 00:06 5,000 units Q8 HUMA Administration Norepinephrine Bitartrate 4 mg in 250 mls @ 6.81 mls/hr 03/17/25 21:00 03/19/25 11:06 Levophed/D5w IV 04/16/25 20:59 0.02 mcg/kg/min .Q24H HUMA 6.8 mls/hr Titration Protocol 0.02 MCG/KG/MIN Piperacillin Sod/Tazobactam Sod 4.5 gm in 100 mls @ 25 mls/hr 03/18/25 00:30 03/19/25 11:38 Zosyn IV 03/28/25 00:29 Infused Q8H HUMA Infusion Protocol Famotidine 20 mg in 5 mls @ 2.5 mls/min 03/18/25 11:00 03/19/25 11:06 Pepcid 20mg Iv Push IV 04/17/25 10:59 2.5 mls/min DAILY@1100 HUMA Administration Lactated Ringer's 1,000 mls @ 80 mls/hr 03/19/25 06:00 03/19/25 06:11 Lr IV 03/22/25 05:59 80 mls/hr .[id number] HUMA Administration Melatonin 9 mg 03/18/25 00:50 03/18/25 21:25 Melatonin 3 Mg Tab PO 04/17/25 00:49 9 mg HS HUMA Administration Montelukast Sodium 10 mg 03/18/25 09:00 03/19/25 08:12 Montelukast Sodium 10 Mg Tablet PO 04/17/25 08:59 10 mg DAILY HUMA Administration Polyethylene Glycol 17 gm 03/19/25 09:45 03/19/25 11:06 Polyethylene (Miralax) 17 Gm Pack PO 04/18/25 09:44 17 gm DAILY HUMA Administration Coding Level of Care Code 43564 CRITICAL CARE 1ST 30-74M Diagnoses Septic shock A41.9; R65.21 Acute renal failure superimposed on stage 3 chronic kidney disease N17.9; N18.30 Rhabdomyolysis M62.82 Chronic heart failure with mildly reduced ejection fraction (HFmrEF, 41-49%) I50.22 Uremic acidosis N25.89 Demand ischemia of myocardium I24.89 Diverticulitis K57.92 Time Spent (min) 40
[2025-03-19] MEDS: LACTATED RINGER'S 500 ML IV ONE (16:27)
--- NOTE | 2025-03-19 20:14 | XRay Report ---
EXAM: Portable AP chest radiograph TECHNIQUE: AP portable radiograph of the chest was obtained. INDICATION: Chest pain Comparison: Chest radiograph March 17, 2025 FINDINGS: LINES and TUBES: None CARDIOVASCULAR: Cardiac silhouette is stably and mildly enlarged in size. Atherosclerosis of the thoracic aorta. LUNGS/PLEURA: No focal consolidation identified. Mild pulmonary vascular congestion and chronic interstitial lung changes appear similar to the previous. Somewhat increased elevation of the left hemidiaphragm with associated atelectasis in the left lung base. No significant pleural fluid. No discernible pneumothorax. OSSEOUS/OTHER: No displaced acute osseous process identified. IMPRESSION: Similar congestive changes of the cardiovascular system compared to the previous radiograph. Somewhat increased elevation of the left hemidiaphragm with associated atelectasis in the left lung base. Electronically signed by Willie Santos 03-19-2025 8:14 PM
[2025-03-19 20:59] LABS: Anion Gap 10.0 (3-11); Blood Urea Nitrogen 37.0 mg/dl (6-23); Calcium 8.6 mg/dl (8.6-10.3); Carbon Dioxide 20.0 mmol/L (21-32); Chloride 108.0 mmol/L (98-107); Creatinine Clr Calc Pharmacy 44.9 ml/min; Glucose 117.0 mg/dl (70-99(Fasting)); Magnesium 1.5 mg/dl (1.7-2.4); Potassium 4.4 mmol/L (3.5-5.1); Sodium 138.0 mmol/L (136-145)
[2025-03-19] MEDS: ACETAMINOPHEN 325 MG TAB PO PRN (21:27)
[2025-03-19] MEDS: ALUMINUM/MAGNESIUM SUSP 30 ML UDC PO PRN (21:27)
[2025-03-19] MEDS: HYDROCORTISONE 10 MG TAB PO SCH (21:28)
[2025-03-19] MEDS: MAGNESIUM SULFATE / D5W 1 GM/100 ML BAG IV SCH (22:49)
[2025-03-20 05:53] LABS: Hematocrit (blood only) 32.0 % (42.0-52.0); Hemoglobin 10.3 g/dl (14.0-18.0); Immature Granulocytes # (auto) 0.21 K/uL (0.01-0.20); Immature Granulocytes % (auto) 2.5 %; Mean Corpuscular Hemoglobin 29.8 pg (25.0-34.0); Mean Corpuscular Volume 92.5 fL (80.0-100.0); Platelet Count 226 K/uL (130-400); RDW Standard Deviation 49.0 fL (36.4-46.3); Red Blood Count 3.46 M/uL (4.70-6.10); White Blood Count 8.26 K/ul (4.8-10.8)
[2025-03-20 06:11] LABS: Anion Gap 6.0 (3-11); Blood Urea Nitrogen 29.0 mg/dl (6-23); Calcium 8.7 mg/dl (8.6-10.3); Carbon Dioxide 23.0 mmol/L (21-32); Chloride 108.0 mmol/L (98-107); Creatinine Clr Calc Pharmacy 51.3 ml/min; Glucose 116.0 mg/dl (70-99(Fasting)); Magnesium 2.8 mg/dl (1.7-2.4); Potassium 4.6 mmol/L (3.5-5.1); Sodium 137.0 mmol/L (136-145)
[2025-03-20] MEDS: FLUDROCORTISONE ACETATE 0.1 MG TAB PO SCH (08:05)
--- NOTE | 2025-03-20 10:30 | Hospitalist Progress Note ---
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 Events of last evening noted, mergers and acquisitions manager started Florinef and hydrocortisone for concerns of possible adrenal insufficiency. With these interventions able to be titrated off Levophed Laboratory studies pending to evaluate renin aldosterone system Replace phosphorus Seen with physical therapy. Patient able to stand up with a walker and transfer himself to a chair with minimal assistance, continue therapies Transition to oral antibiotics, tolerating his meals, blood cultures sterile, minimal evidence of diverticulitis on CT scan. Communication with case management, suspect patient may need rehab at that when ready for discharge Admission and Anticipated Discharge Date Admission Date: March 17, 2025 Subjective No acute issues overnight. Patient states he is tolerating his meals. Has not moved his bowels yet. Is working with physical therapy this morning. Able to be titrated off Levophed overnight. Physical Exam Physical Exam: Constitutional: Alert, nontoxic HEENT: Mucous membranes moist. Lungs: Decreased breath sounds, no wheezes, no rales CV: S1-S2, regular, tachycardic Abdomen: Soft, nontender, nondistended Extremities: Mild edema in forearms Neuro: No focal deficits, generally weak Psych: Cooperative, normal mood Results & Data Results & Data Vital Signs (Past 12 Hours) Vital Signs Temp Pulse Resp BP Pulse Ox O2 Del Method 03/20/25 08:15 36.6 C 98 H 21 105/76 96 Room Air 03/20/25 07:03 36.5 C 93 H 16 96/68 L 97 Room Air 03/20/25 06:33 36.4 C L 96 H 16 95 03/20/25 06:03 36.4 C L 97 H 16 107/67 95 03/20/25 05:39 36.4 C L 101 H 17 100/69 95 03/20/25 05:03 36.4 C L 98 H 14 91/67 L 95 03/20/25 04:36 36.4 C L 94 H 12 94/63 L 97 03/20/25 04:03 36.5 C 98 H 17 88/63 L 95 03/20/25 03:33 36.6 C 98 H 15 89/59 L 96 03/20/25 03:00 36.6 C 102 H 17 87/59 L 95 03/20/25 02:30 36.6 C 101 H 17 89/64 L 95 03/20/25 02:09 36.7 C 102 H 18 90/63 L 95 03/20/25 01:36 36.8 C 103 H 18 78/57 L 95 03/20/25 01:00 36.9 C 104 H 15 88/61 L 95 03/20/25 00:51 36.9 C 102 H 18 94 03/20/25 00:24 37.0 C 103 H 20 104/75 95 03/20/25 00:00 102/69 03/20/25 00:00 101 H 03/19/25 23:33 37.1 C 100 H 20 91/71 L 95 03/19/25 23:03 37.3 C 96 H 18 105/72 96 03/19/25 22:30 37.6 C H 98 H 17 104/74 95 Diagnostic Findings Reviewed imaging, laboratory and diagnostic studies. Pertinent findings as below. WBCs 8.2 Hemoglobin 10.3 Platelets of 226 Electrolytes stable Creatinine 1.46, continued improvement Phosphorus 1.8 Magnesium 2.8 Blood cultures sterile for greater than 48 hours (8) COPD (chronic obstructive pulmonary disease) COPD type: unspecified COPD Qualified Code(s): J44.9 - Chronic obstructive pulmonary disease, unspecified
[2025-03-20] MEDS ORDERED: SODIUM PHOSPHATE 3 MMOL/1 ML INFUSION IV STA (10:37)
--- NOTE | 2025-03-20 11:00 | Critical Care Progress Note ---
Date of Service March 20, 2025 Assessment & Plan (1) Septic shock: Plan: * Improved off vasopressors since last evening. * Suspected infectious source diverticulitis. Cont Zosyn. * HEATHER on CKD-3 * Taper Vasopressors to MAP > 65mmHg * Cont Florinef and hydrocortisone. (2) Acute renal failure superimposed on stage 3 chronic kidney disease: Plan: * Multifactorial * Intravascular hypovolemia secondary to GI losses * Impaired renal perfusion secondary to septic shock, hypotension, and intravascular-volume depletion * Rhabdomyolysis * Creatinine improving with overall improved BP and fluid-repletion * Avoid nephrotoxic medications. 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 (5) Demand ischemia of myocardium: Plan: * Elevated Troponin without ECG changes * Suspected on basis of myocardial supply-demand mismatch associated with septic shock (6) Diverticulitis: Plan: * Noted on CT of abdomen * Contributing to GI symptoms * Continue antibiotics (7) Adrenal insufficiency: Plan: * Random cortisol 03/19/25 @ 0400 11.57 * Started on fludrocortisone and hydrocortisone * Can continue with endocrine follow up or hold hydrocortisone for 24hrs and perform AcTH stim test. Plan I have personally spent 45 minutes of critical care time in the direct management of this patient. This is a life/limb threatening event. This includes time spent evaluating the patient, direct bedside care, chart review, placing orders, interpreting diagnostic studies, communicating with consultants, attending providers, patient, and family members, as well as required patient management activities. This time is exclusive of all separately-billable procedures and teaching time, and separate from and in addition to any other critical care service time. Admission and Anticipated Discharge Date Admission Date: March 17, 2025 Supervising Physician Co-Signing Physician Notes I have seen and evaluated the patient with the TEMPERING MACHINE OPERATOR. I agree with the documented findings and plan in addition to the following. Patient seen and examined this morning. He is doing well. He is off of Levophed. Patient was found to have a cortisol level of 11. He was started on flu drocortisone and Cortef. Tolerating p.o. Getting out of bed with physical therapy this morning. Stopping IV fluids this morning. Patient says he has not had a bowel movement, taking MiraLAX this morning to assist with this. Patient is stable to be transferred out of the ICU. Continue fludrocortisone and Cortef. Consider endocrine consultation for possible adrenal insufficiency prior to discharge. Would not recommend stopping fludrocortisone and Cortef abruptly without endocrine support. I have personally spent 25 minutes of critical care time in the direct management of this patient. This is a life/limb threatening event. This includes time spent evaluating patient, direct bedside care, chart review, placing orders, interpretation of diagnostic studies, discussion with consultants, patient, and family members, as well as other required patient management activities. This time is exclusive of all separately billable procedures, and teaching time and separate from and in addition to any other critical care service time. Please note the above document was generated using voice recognition software. It may contain grammatical, syntax or spelling errors. Subjective Patient weaned off vasopressors overnight. On room air with SpO2 96%. Patient mentating well and taking good PO intake. Review of Systems Review of Systems: All systems reviewed & are unremarkable except as noted in HPI & below Physical Exam Physical Exam: VITALS: Reviewed. WEIGHT/BMI reviewed. GEN: Pleasant, well-developed, NAD. PSYCH: Good Judgment. AOx3. Normal memory, mood, and affect. HEENT -Head: NC/AT; -Eyes: PERRL, EOMI. No discharge or redn ess; -Ears: External ears are normal. -Nose: Normal nares. NECK: Supple, with no masses. CV: RRR, no m/r/g. LUNGS: CTAB, no w/r/c. ABD: N/A : N/A SKIN: Warm, well perfused. No skin rashes or abnormal lesions. MSK: No deformities, Normal gait. EXT: No clubbing, cyanosis, or edema. NEURO: Normal muscle strength and tone. No focal deficits. Results & Data Results & Data Vital Signs (Past 12 Hours) Vital Signs Temp Pulse Resp BP Pulse Ox O2 Del Method 03/20/25 08:15 36.6 C 98 H 21 105/76 96 Room Air 03/20/25 07:03 36.5 C 93 H 16 96/68 L 97 Room Air 03/20/25 06:33 36.4 C L 96 H 16 95 03/20/25 06:03 36.4 C L 97 H 16 107/67 95 03/20/25 05:39 36.4 C L 101 H 17 100/69 95 03/20/25 05:03 36.4 C L 98 H 14 91/67 L 95 03/20/25 04:36 36.4 C L 94 H 12 94/63 L 97 03/20/25 04:03 36.5 C 98 H 17 88/63 L 95 03/20/25 03:33 36.6 C 98 H 15 89/59 L 96 03/20/25 03:00 36.6 C 102 H 17 87/59 L 95 03/20/25 02:30 36.6 C 101 H 17 89/64 L 95 03/20/25 02:09 36.7 C 102 H 18 90/63 L 95 03/20/25 01:36 36.8 C 103 H 18 78/57 L 95 03/20/25 01:00 36.9 C 104 H 15 88/61 L 95 03/20/25 00:51 36.9 C 102 H 18 94 03/20/25 00:24 37.0 C 103 H 20 104/75 95 03/20/25 00:00 102/69 03/20/25 00:00 101 H 03/19/25 23:33 37.1 C 100 H 20 91/71 L 95 03/19/25 23:03 37.3 C 96 H 18 105/72 96 Critical Care Results & Data Vital Signs (Past 12 Hours) Vital Signs Temp Pulse Resp BP Pulse Ox O2 Del Method 03/20/25 08:15 36.6 C 98 H 21 105/76 96 Room Air 03/20/25 07:03 36.5 C 93 H 16 96/68 L 97 Room Air 03/20/25 06:33 36.4 C L 96 H 16 95 03/20/25 06:03 36.4 C L 97 H 16 107/67 95 03/20/25 05:39 36.4 C L 101 H 17 100/69 95 03/20/25 05:03 36.4 C L 98 H 14 91/67 L 95 03/20/25 04:36 36.4 C L 94 H 12 94/63 L 97 03/20/25 04:03 36.5 C 98 H 17 88/63 L 95 03/20/25 03:33 36.6 C 98 H 15 89/59 L 96 03/20/25 03:00 36.6 C 102 H 17 87/59 L 95 03/20/25 02:30 36.6 C 101 H 17 89/64 L 95 03/20/25 02:09 36.7 C 102 H 18 90/63 L 95 03/20/25 01:36 36.8 C 103 H 18 78/57 L 95 03/20/25 01:00 36.9 C 104 H 15 88/61 L 95 03/20/25 00:51 36.9 C 102 H 18 94 03/20/25 00:24 37.0 C 103 H 20 104/75 95 03/20/25 00:00 102/69 03/20/25 00:00 101 H 03/19/25 23:33 37.1 C 100 H 20 91/71 L 95 03/19/25 23:03 37.3 C 96 H 18 105/72 96 Lab & Micro Results (Past 24 Hours) RBC 3.46 M/uL (4.70-6.10) L 03/20/25 WBC 8.26 K/ul (4.8-10.8) 03/20/25 Hgb 10.3 g/dl (14.0-18.0) L 03/20/25 Hct 32.0 % (42.0-52.0) L 03/20/25 MCV 92.5 fL (80.0-100.0) 03/20/25 MCH 29.8 pg (25.0-34.0) 03/20/25 MCHC 32.2 g/dL (32.0-36.0) 03/20/25 RDW Standard Deviation 49.0 fL (36.4-46.3) H 03/20/25 RDW Coefficient of Variation 14.6 % (11.5-14.5) H 03/20/25 Plt Count 226 K/uL (130-400) 03/20/25 MPV 9.8 fL (9.4-12.4) 03/20/25 Neutrophils (%) (Auto) 76.7 % 03/20/25 Lymphocytes (%) (Auto) 9.6 % 03/20/25 Monocytes # (Auto) 0.60 K/uL (0.11-0.59) H 03/20/25 Eosinophils # (Auto) 0.24 K/uL (0.00-0.50) 03/20/25 Immature Granulocyte % (Auto) 2.5 % 03/20/25 Neutrophils # (Auto) 6.34 K/uL (1.40-6.50) 03/20/25 Lymphocytes # (Auto) 0.79 K/uL (1.20-3.40) L 03/20/25 Monocytes # (Auto) 0.60 K/uL (0.11-0.59) H 03/20/25 Eosinophils # (Auto) 0.24 K/uL (0.00-0.50) 03/20/25 Basophils # (Auto) 0.08 K/uL (0.00-0.20) 03/20/25 Immature Granulocyte # (Auto) 0.21 K/uL (0.01-0.20) H 03/20 Na 137 mmol/L (136-145) 03/20/25 K 4.6 mmol/L (3.5-5.1) 03/20/25 Cl 108 mmol/L (98-107) H 03/20/25 CO2 23 mmol/L (21-32) 03/20/25 Anion Gap 6 (3-11) 03/20/25 BUN 29 mg/dl (6-23) H 03/20/25 Creatinine 1.46 mg/dl (0.6-1.4) H 03/20/25 BUN/Creatinine Ratio 19.9 (10-20) 03/20/25 Glu 116 mg/dl (70-99(Fasting)) H 03/20/25 Ca 8.7 mg/dl (8.6-10.3) 03/20/25 Phosphorus Level 1.8 mg/dl (2.5-4.9) L 03/20/25 Mg 2.8 mg/dl (1.7-2.4) H 03/20/25 05:23 Calcium Level 8.7 mg/dl (8.6-10.3) 03/20/25 05:23 Microbiology 03/17/25 14:49 Aerobic Blood Culture - Preliminary Blood No growth in Aerobic bottle after 48 hours. Anaerobic Blood Culture - Preliminary No growth in Anaerobic bottle after 48 hours. 03/17/25 14:49 Aerobic Blood Culture - Preliminary Blood No growth in Aerobic bottle after 48 hours. Anaerobic Blood Culture - Preliminary No growth in Anaerobic bottle after 48 hours. Diagnostic Findings (Past 24 Hours) Chest X-Ray 03/19/25 19:34 EXAM: Portable AP chest radiograph TECHNIQUE: AP portable radiograph of the chest was obtained. INDICATION: Chest pain Comparison: Chest radiograph March 17, 2025 FINDINGS: LINES and TUBES: None CARDIOVASCULAR: Cardiac silhouette is stably and mildly enlarged in size. Atherosclerosis of the thoracic aorta. LUNGS/PLEURA: No focal consolidation identified. Mild pulmonary vascular congestion and chronic interstitial lung changes appear similar to the previous. Somewhat increased elevation of the left hemidiaphragm with associated atelectasis in the left lung base. No significant pleural fluid. No discernible pneumothorax. OSSEOUS/OTHER: No displaced acute osseous process identified. IMPRESSION: Similar congestive changes of the cardiovascular system compared to the previous radiograph. Somewhat increased elevation of the left hemidiaphragm with associated atelectasis in the left lung base. Electronically signed by Willie Santos 03-19-2025 8:14 PM I & O Totals 24 Hours 03/19/25 03/20/25 03/21/25 06:59 06:59 06:59 Intake Total 5692.010 / 5792.010 1460 / 1460 Output Total 2790 / 2790 200 / 200 Balance 2902.010 / 3002.010 1260 / 1260 Cumulative 03/17/25 13:15 thru 03/20/25 09:36 Intake Total 46182.723 Output Total 7150 Balance 7687.723 RT Ventilator Mngmt (Last Documented) Ventilator Ordered Settings Respiratory Rate 21 03/20/25 08:15 Fraction of Inspired Oxygen 40 03/19/25 03:33 Ventilator - PT Measurements Respiratory Rate 21 Coding Level of Care Code 81820 CRITICAL CARE 1ST 30-74M Diagnoses Septic shock A41.9; R65.21 Acute renal failure superimposed on stage 3 chronic kidney disease N17.9; N18.30 Rhabdomyolysis M62.82 Chronic heart failure with mildly reduced ejection fraction (HFmrEF, 41-49%) I50.22 Demand ischemia of myocardium I24.89 Diverticulitis K57.92 Adrenal insufficiency E27.40
--- NOTE | 2025-03-20 11:50 | Electrocardiogram Report ---
Test Reason : Blood Pressure : */* mmHG Vent. Rate : 105 BPM Atrial Rate : 105 BPM P-R Int : 162 ms QRS Dur : 76 ms QT Int : 326 ms P-R-T Axes : 53 53 60 degrees QTcB Int : 430 ms Sinus tachycardia Otherwise normal ECG When compared with ECG of 17-Mar-2025 14:48, No significant change was found Confirmed by Robert Ernandez ([id number]) on 03/20/2025 11:50:42 AM Referred By: Todd Wolff Confirmed By: Robert Ernandez
[2025-03-20] MEDS: SODIUM PHOSPHATE 30 MMOL in SODIUM CHLORIDE 0.9% 500 ML IV ONE (12:37)
[2025-03-20] MEDS: AMOXICILLIN/CLAVULANATE 875 MG TAB PO SCH (16:25)
[2025-03-21 07:27] LABS: Anion Gap 7.0 (3-11); Blood Urea Nitrogen 29.0 mg/dl (6-23); Calcium 8.9 mg/dl (8.6-10.3); Carbon Dioxide 23.0 mmol/L (21-32); Chloride 108.0 mmol/L (98-107); Creatinine Clr Calc Pharmacy 58.9 ml/min; Glucose 84.0 mg/dl (70-99(Fasting)); Magnesium 2.3 mg/dl (1.7-2.4); Potassium 4.7 mmol/L (3.5-5.1); Sodium 138.0 mmol/L (136-145)
[2025-03-21] MEDS: ATORVASTATIN 40 MG TAB PO SCH (08:40)
[2025-03-21] MEDS: MIDODRINE HCL 2.5 MG TAB PO SCH (08:42)
[2025-03-21] MEDS ORDERED: SODIUM PHOSPHATE 3 MMOL/1 ML INFUSION IV STA (14:26)
--- NOTE | 2025-03-21 14:32 | Hospitalist Progress Note ---
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 Still weak and deconditioned. Patient continues with sinus tachycardia. May be that patient is still volume depleted based on input and output. Given additional IV fluid bolus. Sinus tachycardia may also be due to beta-linda withdrawal. Patient had been on this prior to admission. Adrenal studies pending At this point somewhat low suspicion for adrenal insufficiency, trial of midodrine to maintain blood pressure. Discontinue Florinef and hydrocortisone Communication case management investigating possible [facility] reply pending. [facility] has excepted as secondary option. Continue to replace phosphorus Monitor laboratory studies Encourage therapies Admission and Anticipated Discharge Date Admission Date: March 17, 2025 Subjective Patient seen this morning after returning from bathroom little bit of shortness of breath. 10 feels heart racing. States that he is doing well with a walker but when he is trying to stand up from a chair or the toilet he still needs quite a bit of assistance. Physical Exam Physical Exam: Constitutional: Alert, nontoxic HEENT: Mucous membranes moist. Lungs: Decreased breath sounds, no wheezes, tachycardic CV: S1-S2, regular Abdomen: Soft, nontender, nondistended Extremities: Some posterior thigh edema but minimal Neuro: No focal deficits Psych: Cooperative, normal mood Results & Data Results & Data Vital Signs (Past 12 Hours) Vital Signs Temp Pulse Pulse Resp BP Pulse Ox O2 Del Method 03/21/25 13:54 127 H 03/21/25 08:39 110/75 03/21/25 07:41 36.4 C L 111 H 14 99/70 L 95 Room Air 03/21/25 07:10 116 H 03/21/25 04:00 36.8 C 110 H 18 107/74 94 Room Air Diagnostic Findings Reviewed imaging, laboratory and diagnostic studies. Pertinent findings as below. Creatinine 1.26, continued improvement Phosphorus 2.3 (8) COPD (chronic obstructive pulmonary disease) COPD type: unspecified COPD Qualified Code(s): J44.9 - Chronic obstructive pulmonary disease, unspecified
[2025-03-21] MEDS: SODIUM CHLORIDE 0.9% 1,000 ML IV ONE (14:54)
[2025-03-21] MEDS: SODIUM PHOSPHATE 21 MMOL in SODIUM CHLORIDE 0.9% 500 ML IV ONE (15:30)
[2025-03-22 07:53] LABS: Anion Gap 9.0 (3-11); Blood Urea Nitrogen 28.0 mg/dl (6-23); Calcium 9.1 mg/dl (8.6-10.3); Carbon Dioxide 22.0 mmol/L (21-32); Chloride 109.0 mmol/L (98-107); Creatinine Clr Calc Pharmacy 54.8 ml/min; Glucose 83.0 mg/dl (70-99(Fasting)); Magnesium 2.1 mg/dl (1.7-2.4); Potassium 4.6 mmol/L (3.5-5.1); Sodium 140.0 mmol/L (136-145)
--- NOTE | 2025-03-22 11:19 | XRay Report ---
XR chest 2V PA/lateral CLINICAL HISTORY: sob COMPARISON STUDY: 03/19/2025 FINDINGS: Stable mild cardiomegaly with mild pulmonary vascular congestion. No consolidation or pleur al effusion. IMPRESSION: Mild CHF. ACT 112: Negative or not required by law. Electronically signed by: Sergo Fabian M.D. 03/22/2025 11:18 AM
[2025-03-22] MEDS: FUROSEMIDE INJ 20 MG/2 ML VIAL IV ONE (11:51)
--- NOTE | 2025-03-22 15:42 | Hospitalist Progress Note ---
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 Blood pressures have improved and stabilized on midodrine. Renal function has returned to normal. Electrolytes have stabilized. Patient now showing signs of volume overload due to his fluid resuscitation. Suspect this may be the etiology for the sinus tachycardia as well. Lasix 20 mg IV x 1 dose today, assess need for Lasix daily Continue midodrine while attempting to stabilize fluid status, attempt to titrate off when able With slightly reduced ejection fraction would be beneficial patient could eventually get back onto metoprolol succinate. This would help the tachycardia as well, however blood pressures limiting to this medication at this time Continue therapies Continue Augmentin through 03/24/2025 morning Performed peer to peer review for approval to inpatient rehabilitation. Patient was approved for inpatient rehab. [facility]ate [facility] with ongoing management of medications there with more intense therapies. Admission and Anticipated Discharge Date Admission Date: March 17, 2025 Subjective Patient steadily improving with strength. Still a bit short of breath. Denies any chest pain Physical Exam Physical Exam: Constitutional: Alert, nontoxic HEENT: Mucous membranes moist. Lungs: Decreased breath sounds, few crackles at bases CV: S1-S2, regular, tachycardic Abdomen: Soft, nontender, nondistended Extremities: 1+ edema lower extremities, some edema in the forearm Neuro: No focal deficits, generally weak Psych: Cooperative, normal mood Results & Data Results & Data Vital Signs (Past 12 Hours) Vital Signs Temp Pulse Pulse Resp BP Pulse Ox O2 Del Method 03/22/25 15:23 36.7 C 126 H 18 106/73 94 Room Air 03/22/25 14:52 123 H 03/22/25 07:12 111 H 03/22/25 07:01 36.9 C 96 H 18 111/79 92 Room Air Diagnostic Findings Reviewed imaging, laboratory and diagnostic studies. Pertinent findings as below. Personally reviewed chest x-ray, congestion noted, no effusion noted, no infiltrate Electrolytes stabilizing Creatinine 1.36, significantly improved (8) COPD (chronic obstructive pulmonary disease) COPD type: unspecified COPD Qualified Code(s): J44.9 - Chronic obstructive pulmonary disease, unspecified
[2025-03-22 19:27] LABS: Appearance Urine Clear (Clear); Bacteria Urine Automated None Seen (None Seen); Epithelial Cell Urine Auto 0-2 /hpf (0-2); Glucose Urine UA Negative (Negative); WBC Urine Automated 0-5 /hpf (0-5)
[2025-03-22] MEDS: PHENAZOPYRIDINE HCL 200 MG TAB PO PRN (20:52)
[2025-03-23 06:16] LABS: Hematocrit (blood only) 32.0 % (42.0-52.0); Hemoglobin 10.4 g/dl (14.0-18.0); Mean Corpuscular Hemoglobin 30.2 pg (25.0-34.0); Mean Corpuscular Volume 93.0 fL (80.0-100.0); Platelet Count 289 K/uL (130-400); RDW Standard Deviation 49.0 fL (36.4-46.3); Red Blood Count 3.44 M/uL (4.70-6.10); White Blood Count 11.56 K/ul (4.8-10.8)
[2025-03-23 06:41] LABS: Anion Gap 9.0 (3-11); Blood Urea Nitrogen 32.0 mg/dl (6-23); Calcium 9.0 mg/dl (8.6-10.3); Carbon Dioxide 23.0 mmol/L (21-32); Chloride 105.0 mmol/L (98-107); Creatinine Clr Calc Pharmacy 49.0 ml/min; Glucose 94.0 mg/dl (70-99(Fasting)); Potassium 4.5 mmol/L (3.5-5.1); Sodium 137.0 mmol/L (136-145)
[2025-03-23] MEDS ORDERED: METOPROLOL SUCC 25MG EXT REL TAB PO SCH (09:00)
--- NOTE | 2025-03-23 17:49 | Hospitalist Progress Note ---
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 Robbie Ortega is a 74YOM with a history of tobacco use disorder, COPD on Dupxient, HFrEF (45-50%), HTN, PUD, CKDIII, BPH who presented to [facility] ED from home on the afternoon of 03/17/2025 due to n/v/d x4 days as well as weakness and admitted for septic shock iso diverticulitis. Prior hospitalist performed peer to peer review for approval to inpatient rehabilitation. Patient was approved for inpatient rehab. [facility] with ongoing management of medications there with more intense therapies. #Septic shock: resolved #Diverticulitis: Contributing to GI symptoms, presentation much improved required ICU stay and pressor support briefly on steroids for concern of AI continue to monitor for signs of AI tolerating diet s/p 500cc NS trialed briefly on IV lasix, but seemingly more dry given bump in cr #Abnormal CT AB/P gallbladder distended, evaluated by Surgery who felt 2/2 acute illness denies any abdominal discomfort or GI symptoms # Acute renal failure superimposed on stage 3 chronic kidney disease: Multifactorial iso hypovolemia, septic shock, rhabdo administer 500ccc IV bolus, cr at 1.52 Avoid nephrotoxic medications. #Rhabdomyolysis: Improved Off of Bicarb, resolved #Chronic heart failure with mildly reduced ejection fraction (HFmrEF, 41-49%) #Elevated troponin likely 2/2 shock Cautious volume repletion. no acs changes DVT heparin sq Dispo to [facility] Admission and Anticipated Discharge Date Admission Date: March 17, 2025 Subjective Reports feeling weak but better overall working to finish breakfast this am denies any new concerns, no chest pain or palpitations no dizziness last 24 hours Physical Exam Constitutional: WD/WN, vitals as above Respiratory: normal respiratory effort, lungs clear to auscultation Cardiovascular: tachycardic Gastrointestinal (Abdomen): normal bowel sounds, soft, nontender, no hepatosplenomegaly Results & Data Results & Data Vital Signs (Past 12 Hours) Vital Signs Temp Pulse Pulse Resp BP Pulse Ox O2 Del Method 03/23/25 15:34 113 H 03/23/25 15:19 36.7 C 110 H 18 116/75 95 Room Air 03/23/25 11:40 36.6 C 116 H 18 108/75 96 Room Air 03/23/25 10:37 110 H 03/23/25 07:17 36.6 C 111 H 18 123/79 95 Room Air Laboratory Results Short CBC 03/23/25 Range/Units 05:27 WBC 11.56 H (4.8-10.8) K/ul Hgb 10.4 L (14.0-18.0) g/dl Hct 32.0 L (42.0-52.0) % Plt Count 289 (130-400) K/uL BMP 03/23/25 05:27 Sodium 137 Potassium 4.5 Chloride 105 Carbon Dioxide 23 BUN 32 H Creatinine 1.52 H Glucose 94 Calcium 9.0 Urine 03/22/25 Range/Units Unknown Urine Color Yellow Urine Appearance Clear (Clear) Urine pH 5.5 (4.5-7.5) Ur Specific [place] 1.013 (1.000-1.030) Urine Protein 1+ H (Negative) Urine Glucose (UA) Negative (Negative) Medications Administered Home Medications Medication Instructions Recorded Confirmed Last Taken acetaminophen 500 mg tablet 1,000 mg PO Q4H PRN Pain 06/16/23 03/17/25 Unknown (Tylenol Extra Strength) albuterol sulfate 90 mcg/actuation 2 puff inhalation Q4H PRN Wheezing 06/16/23 03/17/25 Unknown aerosol inhaler ascorbic acid (vitamin C) 1,000 mg 1 g PO DAILY 06/16/23 03/17/25 03/17/25 tablet (Vitamin C) aspirin 81 mg tablet,delayed 81 mg PO DAILY 06/16/23 03/17/25 03/17/25 release caffeine 200 mg tablet 200 mg PO DAILY 06/16/23 03/17/25 03/17/25 [id number] 333 mg-133 1 tab PO DAILY 06/16/23 03/17/25 03/17/25 mg-5 mg tablet cholecalciferol (vitamin D3) 50 50 mcg PO DAILY 06/16/23 03/17/25 03/17/25 mcg (2,000 unit) capsule (Vitamin D3) cyanocobalamin (vitamin B-12) 1,000 mcg PO DAILY 06/16/23 03/17/25 03/17/25 1,000 mcg tablet (Vitamin B-12) diclofenac sodium 1 % topical gel 2 g topical QID PRN Pain 06/16/23 03/17/25 Unknown duloxetine 30 mg capsule,delayed 30 mg PO BID 06/16/23 03/17/25 03/17/25 08:00 release finasteride 5 mg tablet 5 mg PO DAILY 06/16/23 03/17/25 03/17/25 fluticasone propionate 50 2 spray intranasal DAILY 06/16/23 03/17/25 03/17/25 mcg/actuation nasal spray,suspension montelukast 10 mg tablet 10 mg PO DAILY 06/16/23 03/17/25 03/17/25 (Singulair) omeprazole 20 mg tablet,delayed 20 mg PO BIDM 06/16/23 03/17/25 03/17/25 08:00 release vitamin E 670 mg (1,000 unit) 670 mg PO DAILY 06/16/23 03/17/25 03/17/25 capsule atorvastatin 80 mg tablet 80 mg PO QAM 03/17/25 03/17/25 03/17/25 bempedoic acid 180 mg tablet 180 mg PO QAM 03/17/25 03/17/25 03/17/25 (Nexletol) clopidogrel 75 mg tablet 75 mg PO QAM 03/17/25 03/17/25 03/17/25 dupilumab 300 mg/2 mL subcutaneous 300 mg subcut .Q2WKS 03/17/25 03/17/25 Unknown pen injector (Dupixent) empagliflozin 10 mg tablet 10 mg PO QAM 03/17/25 03/17/25 03/17/25 (Jardiance) fluticasone 250 mcg-salmeterol 50 1 inh inhalation BID 03/17/25 03/17/25 03/17/25 08:00 mcg/dose blistr powdr for inhalation (Advair Diskus) isosorbide mononitrate 30 mg 15 mg PO QAM 03/17/25 03/17/25 03/17/25 tablet,extended release 24 hr melatonin 12 mg tablet 12 mg PO HS 03/17/25 03/17/25 03/16/25 metoprolol succinate 25 mg 37.5 mg PO QAM 03/17/25 03/17/25 03/17/25 tablet,extended release 24 hr sacubitril 24 mg-valsartan 26 mg 1 tab PO BID 03/17/25 03/17/25 03/17/25 08:00 tablet spironolactone 25 mg tablet 25 mg PO QAM 03/17/25 03/17/25 03/17/25 torsemide 20 mg tablet 20 mg PO QAM 03/17/25 03/17/25 03/17/25 Active Medications Generic Name Dose Route Start Last Admin Trade Name Freq PRN Reason Stop Dose Admin Acetaminophen 650 mg 03/18/25 00:07 03/19/25 21:27 Acetaminophen 325 Mg Tab PO 04/17/25 00:06 650 mg Q4H PRN Administration Pain or Fever Al Hydrox/Mg Hydrox/Simethicone 15 ml 03/18/25 00:07 03/19/25 21:27 Aluminum/Magnesium Susp 30 Ml Udc PO 04/17/25 00:06 15 ml Q4H PRN Administration Dyspepsia Amoxicillin/Clavulanate Potassium 1 tab 03/20/25 17:00 03/23/25 17:23 Amoxicillin/Clavulanate 875 Mg Tab PO 03/24/25 12:00 1 tab BIDM HUMA Administration Protocol Aspirin 81 mg 03/18/25 09:00 03/23/25 08:15 Aspirin 81 Mg Ectab PO 04/17/25 08:59 81 mg DAILY HUMA Administration Atorvastatin Calcium 80 mg 03/21/25 09:00 03/23/25 08:14 Atorvastatin 40 Mg Tab PO 04/20/25 08:59 80 mg QAM HUMA Administration Clopidogrel Bisulfate 75 mg 03/18/25 09:00 03/23/25 08:14 Clopidogrel Bisulfate 75 Mg Tab PO 04/17/25 08:59 75 mg QAM HUMA Administration Duloxetine HCl 30 mg 03/18/25 00:07 03/23/25 08:14 Duloxetine Hcl 30 Mg Cap PO 04/17/25 00:06 30 mg BID HUMA Administration Finasteride 5 mg 03/18/25 09:00 03/23/25 08:14 Finasteride 5 Mg Tab PO 04/17/25 08:59 5 mg DAILY HUMA Administration Fluticasone/Vilanterol 1 puffs 03/18/25 09:00 03/23/25 08:15 Fluticasone/Vilanterol 200/25mcg 14 Puffs/Inhaler INH 04/17/25 08:59 1 puffs DAILY HUMA Administration Heparin Sodium (Porcine) 5,000 units 03/18/25 00:07 03/23/25 15:53 Heparin Sod 5,000 Unit/0.5 Ml Vial SQ 04/17/25 00:06 5,000 units Q8 HUMA Administration Melatonin 9 mg 03/18/25 00:50 03/22/25 20:52 Melatonin 3 Mg Tab PO 04/17/25 00:49 9 mg HS HUMA Administration Midodrine 5 mg 03/21/25 08:00 03/23/25 17:22 Midodrine Hcl 2.5 Mg Tab PO 04/20/25 07:59 5 mg TID@0800,1200,1700 HUMA Administration Montelukast Sodium 10 mg 03/18/25 09:00 03/23/25 08:18 Montelukast Sodium 10 Mg Tablet PO 04/17/25 08:59 10 mg DAILY HUMA Administration Pantoprazole Sodium 40 mg 03/21/25 09:00 03/23/25 08:18 Pantoprazole 40 Mg Tab PO 04/20/25 08:59 40 mg QAM HUMA Administration Phenazopyridine HCl 200 mg 03/22/25 17:23 03/22/25 20:52 Phenazopyridine Hcl 200 Mg Tab PO 04/21/25 17:22 200 mg TID PRN Administration Dysuria Polyethylene Glycol 17 gm 03/19/25 09:45 03/23/25 08:18 Polyethylene (Miralax) 17 Gm Pack PO 04/18/25 09:44 Not Given DAILY HUMA (8) COPD (chronic obstructive pulmonary disease) COPD type: unspecified COPD Qualified Code(s): J44.9 - Chronic obstructive pulmonary disease, unspecified
[2025-03-23] MEDS: SODIUM CHLORIDE 0.9% 500 ML IV ONE (18:22)
[2025-03-24 07:30] VITALS: RESP 20; O2SAT 95
[2025-03-24 09:03] LABS: Hematocrit (blood only) 33.5 % (42.0-52.0); Hemoglobin 10.7 g/dl (14.0-18.0); Mean Corpuscular Hemoglobin 30.6 pg (25.0-34.0); Mean Corpuscular Volume 95.7 fL (80.0-100.0); Platelet Count 284 K/uL (130-400); RDW Standard Deviation 50.3 fL (36.4-46.3); Red Blood Count 3.50 M/uL (4.70-6.10); White Blood Count 10.93 K/ul (4.8-10.8)
[2025-03-24 09:22] LABS: Anion Gap 8.0 (3-11); Blood Urea Nitrogen 30.0 mg/dl (6-23); Calcium 8.9 mg/dl (8.6-10.3); Carbon Dioxide 24.0 mmol/L (21-32); Chloride 105.0 mmol/L (98-107); Creatinine Clr Calc Pharmacy 47.4 ml/min; Glucose 87.0 mg/dl (70-99(Fasting)); Magnesium 1.8 mg/dl (1.7-2.4); Potassium 4.7 mmol/L (3.5-5.1); Sodium 137.0 mmol/L (136-145)
[2025-03-24 11:20] VITALS: TEMP 97.5
[2025-03-24] MEDS: METOPROLOL SUCC 25MG EXT REL TAB PO SCH (12:02)
--- NOTE | 2025-03-24 12:31 | Discharge Summary ---
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 Robbie Ortega is a 74YOM with a history of tobacco use disorder, COPD on Dupxient, HFrEF (45-50%), HTN, PUD, CKDIII, BPH who presented to [facility] ED from home on the afternoon of 03/17/2025 due to n/v/d x4 days as well as weakness and admitted for septic shock iso diverticulitis. Patient completed course of antibiotics. Patient was initially suspected to have AI; however, ultimately transitioned to midodrine and off of steroids. Patient improving overall, still with relatively low pressures, but tolerating midodrine. Patient eating well and eager to start rehab. Noted lower leg extremity swelling which will require close monitoring of resumption of diuretic iso hypotension. Prior hospitalist performed peer to peer review for approval to inpatient rehabilitation. Patient was approved for inpatient rehab. [facility] with ongoing management of medications there with more intense therapies. On day of discharge, patient sitting in bedside chair and feeling very ready to start rehab. Denies any new symptoms or concerns. #Septic shock: resolved #Diverticulitis: Contributing to GI symptoms, presentation much improved required ICU stay and pressor support briefly on steroids for concern of AI continue to monitor for signs of AI tolerating diet s/p 500cc NS completed augmentin Review of OSH cr reveals baseline is 1.5-1.7 #Relative hypotension started on midodrine, pressures in 110s-120s, no dizziness noted resumed torsemide, holding imdur/aldactone/entresto continue the midodrine #Abnormal CT AB/P gallbladder distended, evaluated by Surgery who felt 2/2 acute illness denies any abdominal discomfort or GI symptoms # Acute renal failure superimposed on stage 3 chronic kidney disease: resolved Multifactorial iso hypovolemia, septic shock, rhabdo baseline cr 1.5-.17 per outpatient trends resume torsemide iso edema Avoid nephrotoxic medications. #Rhabdomyolysis: Improved Off of Bicarb, resolved #Chronic heart failure with mildly reduced ejection fraction (HFmrEF, 41-49%) #Elevated troponin likely 2/2 shock Cautious volume repletion. no acs changes resume toprol and torsmide iso edema holding imdur/aldactone/entresto Notes For Next Care Provider Monitor tolerance to midodrine with torsemide. Noted edema on BLE, no SOB Cardiology follow up recommended given multiple GDMT agents held Medication Changes From Visit Holding Imdur 30mg Holding Enresto 24-26 mg Holding Spironolatone 25mg Reduce Metoprolol from 37.5mg to 12.5mg Resume Torsemide 20mg daily Start Midrodrine 5mg three times a day Admission HPI Per Admitting Provider Patient is 74-year-old gentleman who presents to the emergency room with above complaints. Patient states that he really has not been able to eat or drink anything for at least 2 weeks. He states that anytime he tried to make something he just got nauseated. Did try and eat some chicken soup he had at night and he states that he threw that up within the next hour. In the emergency room findings 6 significant for acute kidney injury, demand ischemia and imaging concerning for possible diverticulitis or cholecystitis. Patient was referred to our service for further evaluation. Time my evaluation patient was more comfortable. He confirms the above history. He also states that he has been noting that his blood pressure has been running well over the past couple weeks as well. He denies any fever or chills. No chest pain. At his baseline shortness of breath. He has a significant other at the bedside. Per her report is that they lived together for about 7 years they then went their separate ways and she just started to live with him again this week. It really was at her prompting that he sought attention in the emergency room. She has seen a significant change in him over the last few days. No blood in the emesis. No blood in the diarrhea. No swelling in his hands arms legs or feet. Admission Exam Per Admitting Provider Constitutional: Alert, ill in appearance, nontoxic HEENT: Mucous membranes moist. Sclera clear Neck: Soft, no adenopathy Lungs: Decreased breath sounds, prolonged expiratory phase CV: S1-S2, regular Abdomen: Soft, nontender, nondistended, no guarding, no rigidity Extremities: No significant edema Musculoskeletal: No significant joint tenderness Neuro: No focal deficits, generally weak Psych: Cooperative, normal mood Discharge Exam Constitutional WD/WN, vitals as above Respiratory normal respiratory effort, lungs clear to auscultation Cardiovascular RRR, no murmur, no edema Gastrointestinal (Abdomen) normal bowel sounds, soft, nontender, no hepatosplenomegaly Neurologic PERRL, EOMI, accommodation nl, no face palsy, no dysarthria Updated Medication List Medication Instructions Recorded Confirmed Type acetaminophen 500 mg tablet 1,000 mg PO Q4H PRN Pain 06/16/23 03/17/25 History (Tylenol Extra Strength) albuterol sulfate 90 mcg/actuation 2 puff inhalation Q4H PRN Wheezing 06/16/23 03/17/25 History aerosol inhaler ascorbic acid (vitamin C) 1,000 mg 1 g PO DAILY 06/16/23 03/17/25 History tablet (Vitamin C) aspirin 81 mg tablet,delayed 81 mg PO DAILY 06/16/23 03/17/25 History release caffeine 200 mg tablet 200 mg PO DAILY 06/16/23 03/17/25 History [id number] 333 mg-133 1 tab PO DAILY 06/16/23 03/17/25 History mg-5 mg tablet cholecalciferol (vitamin D3) 50 50 mcg PO DAILY 06/16/23 03/17/25 History mcg (2,000 unit) capsule (Vitamin D3) cyanocobalamin (vitamin B-12) 1,000 mcg PO DAILY 06/16/23 03/17/25 History 1,000 mcg tablet (Vitamin B-12) diclofenac sodium 1 % topical gel 2 g topical QID PRN Pain 06/16/23 03/17/25 History duloxetine 30 mg capsule,delayed 30 mg PO BID 06/16/23 03/17/25 History release finasteride 5 mg tablet 5 mg PO DAILY 06/16/23 03/17/25 History fluticasone propionate 50 2 spray intranasal DAILY 06/16/23 03/17/25 History mcg/actuation nasal spray,suspension montelukast 10 mg tablet 10 mg PO DAILY 06/16/23 03/17/25 History (Singulair) omeprazole 20 mg tablet,delayed 20 mg PO BIDM 06/16/23 03/17/25 History release vitamin E 670 mg (1,000 unit) 670 mg PO DAILY 06/16/23 03/17/25 History capsule atorvastatin 80 mg tablet 80 mg PO QAM 03/17/25 03/17/25 History bempedoic acid 180 mg tablet 180 mg PO QAM 03/17/25 03/17/25 History (Nexletol) clopidogrel 75 mg tablet 75 mg PO QAM 03/17/25 03/17/25 History dupilumab 300 mg/2 mL subcutaneous 300 mg subcut .Q2WKS 03/17/25 03/17/25 History pen injector (Dupixent) empagliflozin 10 mg tablet 10 mg PO QAM 03/17/25 03/17/25 History (Jardiance) fluticasone 250 mcg-salmeterol 50 1 inh inhalation BID 03/17/25 03/17/25 History mcg/dose blistr powdr for inhalation (Advair Diskus) isosorbide mononitrate 30 mg 15 mg PO QAM 03/17/25 03/17/25 History tablet,extended release 24 hr melatonin 12 mg tablet 12 mg PO HS 03/17/25 03/17/25 History sacubitril 24 mg-valsartan 26 mg 1 tab PO BID 03/17/25 03/17/25 History tablet spironolactone 25 mg tablet 25 mg PO QAM 03/17/25 03/17/25 History torsemide 20 mg tablet 20 mg PO QAM 03/17/25 03/17/25 History metoprolol succinate 25 mg 12.5 mg (1/2 x 25 mg) PO QAM #0 03/24/25 Rx tablet,extended release 24 hr tabs midodrine 2.5 mg tablet 5 mg (2 x 2.5 mg) PO 03/24/25 Rx TID@0800,1200,1700 #0 tabs Hospital Stay Data Consultations 03/17/25 16:09 Consult General Surgery Stat 03/17/25 16:37 ED Decision to Admit Stat 03/17/25 20:59 Consult [employer] Program[employer] Routine Diagnostic Imagining Performed 03/17/25 14:30 CT abd pelvis wo con Stat 03/17/25 16:01 US gallbladder Stat Discharge Instructions Given to Patient (Per Discharging Provider) Holding Imdur 30mg Holding Enresto 24-26 mg Holding Spironolatone 25mg Reduce Metoprolol from 37.5mg to 12.5mg Resume Torsemide 20mg daily Start Midrodrine 5mg three times a day Total Time Total Time Spent Total Time Spent (In Minutes): 55
[2025-03-24] MEDS: TORSEMIDE 20 MG TAB PO SCH (12:54)
[2025-03-24 18:09] VITALS: BP 105/70; PULSE 105
[2025-03-25] MEDS ORDERED: METOPROLOL SUCC 25MG EXT REL TAB PO SCH (09:00)
== END 2025-03-24 18:09 | DRG 871 ==
LOC: ED 13:15 → 1E 17:15 → SUATTDRO 17:15 → 1E 23:13 → 2W 03-20 21:43